=== PATIENT | male | born 1960 | race Caucasian/White ===

== ENCOUNTER 2019-09-24 13:14 | Emergency (ER) | payer OTHER, SELFPAY ==
--- NOTE | ~2019-09-24 | XR_ITS ---
EXAMINATION: XR foot LT min 3V EXAM DATE: 09/24/2019 16:08 INDICATION: Diabetic ulcer plantar surface left 5th metatarsal region. TECHNIQUE: Left foot dorsoplantar, lateral and oblique projections obtained and reviewed. There is n o prior study for comparison. FINDINGS: There is old healed left 5th metatarsal shaft fracture. Soft tissue swelling overlying thi s which could be edema at the ulceration site. Some small foci of gas at this location. There are no bony erosions identified. There are no acute fractures or dislocations identified. There are no radi opaque foreign bodies. IMPRESSION: 1. XR foot LT min 3V exam without acute osseous findings. 2. Soft tissue swelling, small foci of gas at ulceration or within subcutaneous tissues. Reviewed, dictated and finalized at location A. IMPRESSION: 1. XR foot LT min 3V exam without acute osseous findings. 2. Soft tissue swelling, small foci of gas at ulceration or within subcutaneou s tissues.
[2019-09-24 13:34] VITALS: BP 151/89; PULSE 84; RESP 18; TEMP 36.5; O2SAT 100
--- NOTE | 2019-09-24 15:48 | ECG_ITS ---
Measurements Intervals [place] Rate: 58 P: 47 [place]: 189 QRS: -52 QRSD: 136 T: -3 QT: 416 QTc: 412 Interpretive Statements SINUS BRADYCARDIA INTRAVENTRICULAR CONDUCTION DELAY DELAYED PRECORDIAL R/S TRANSITION VOLTAGE CRITERIA FOR LVH BORDERLINE T WAVE ABNORMALITY- INFERIOR LEADS BASELINE ARTIFACT- V1 BORDERLINE ECG Electronically Signed On 09-25-2019 9:49:36 CDT by Pernell Adams D.O.
--- NOTE | 2019-09-24 16:04 | ED.WOUNDLAC ---
HPI - Wound/Laceration General Chief Complaint: Wound/Laceration Stated Complaint: left foot wound Time Seen by Provider: 09/24/19 15:09 Source: patient Mode of arrival: ambulatory Limitations: no limitations History of Present Illness HPI narrative: This patient is a 59 year old male with history of insulin dependent diabetic who presents for evaluation of a left foot wound. Patient developed a blister on the outside of his left foot 2 weeks ago. Over the past week, he noticed swelling and worsening of the wound. He also has left foot redness and his wound has developed an odor. He has been attempting to treat with antibiotics ointment and epsom salt. He denies nausea, vomiting but reports low grade fever yesterday. He has also noticed that his blood sugar is running higher than normal. Related Data Home Medications Medication Instructions Recorded Confirmed cetirizine [Zyrtec] 10 mg PO DAILY 09/24/19 gabapentin 300 mg PO DAILY 09/24/19 insulin glargine [Lantus U-100 50 unit SUBCUT QPM 09/24/19 Insulin] lisinopril 10 mg PO DAILY 09/24/19 naproxen 250 mg PO BID PRN 09/24/19 Allergies Allergy/AdvReac Type Severity Reaction Status Date / Time No Known Allergies Allergy Unverified 09/24/19 13:33 Review of Systems Review of Systems: All systems reviewed & are unremarkable except as noted in HPI and below Constitutional: Constitutional: Denies chills and Reports fever(s) Cardiovascular: Cardiovascular: Denies chest pain Respiratory: Respiratory: Denies cough, Denies dyspnea and Denies wheezing Gastrointestinal: Gastrointestinal: Denies abdominal pain, Denies nausea and Denies vomiting Integumentary/Breasts: Skin/Breast: Reports erythema and Reports skin ulcer PMFSH Past Medical History Medical History (Updated 09/24/19 @ 19:27 by May Robledo MD) Diabetes mellitus Hypertension Surgical History Surgical History (Updated 09/24/19 @ 16:16 by May Robledo MD) History of cholecystectomy Family History Family History (Updated 01/18/17 @ 11:59 by DOCTOR UNKNOWN) Other Cerebrovascular accident Diabetes mellitus Family history of alcoholism Family history of arthritis Family history of malignant neoplasm Social History Social History Smoking status: Smoker, status unknown Gender identity (if verbalized by the patient): Male Exam Const: General: no acute distress and alert Orientation/consciousness: patient oriented x3 HENMT: Head: normocephalic and atraumatic Ears: TM's normal bilaterally General nose exam: No nasal polyps present Eyes: EOM: EOMs intact bilaterally Chest: Chest palpation & inspection: normal inspection of the chest Resp: Effort & Inspection: normal respiratory effort and no retractions Auscultation: clear to auscultation bilaterally Cardio: Rate: regular rate Rhythm: regular rhythm Heart sounds: no murmurs Other: palpable bilateral DP pulses GI: GI Palp: Yes Soft to palpation, No Tenderness to palpation present (GI) and No Guarding due to palpation present (GI) Skin: Other: left foot with swelling and redness; on lateral foot there is 4 cm blister with dark tissue under and 2 cm ulcer on plantar surface Neuro: General: patient oriented x3 and moves all extremities Course Reevaluation(s) Reevaluation #1: I Discussed with patient that I recommend he be admitted for treatment and debridement of left foot wound. He understands that this can lead to worsening infection and surgery. He states he does not want to be admitted. 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 Date: 09/24/19 Time: 18:00 Consultations Consultation #1: I discussed case with Dr. Guerrero about patient's foot ulcer. I discussed that I wanted to admit patient but he does not want to stay. He is okay with follow up with patient in wound center this week. REcommends taking culture and dressing with silver gel. Date: 09/24/19 Time: 18:51 Vital Signs Vital
[2019-09-24 16:29] LABS: Basophils Absolute Auto 0.1 K/mm3 (0.0-0.1); Basophils Percent Auto 0.8 % (0.2-1.2); Eosinophils Absolute Auto 0.3 K/mm3 (0-0.3); Eosinophils Percent Auto 2.6 % (0-4.4); Hematocrit 40.2 % (42.0-52.0); Hemoglobin 13.6 g/dL (14.0-18.0); Immature Granulocyte Absolute 0.02 K/mm3 (0.00-0.031); Immature Granulocyte Percent A 0.2 % (0-0.5); Lymphocytes Absolute Auto 1.58 K/mm3 (0.9-3.2); Lymphocytes Percent Auto 16.3 % (18.3-44.2); Mean Corpuscular HGB Conc 33.8 g/dl (32-36); Mean Corpuscular Hemoglobin 28.9 pg (26-34); Mean Corpuscular Volume 85.4 fl (80-100); Mean Platelet Volume 9.4 fl (7.4-10.4); Monocytes Absolute Auto 1.1 K/mm3 (0.1-0.6); Neutrophils Absolute Auto 6.7 K/mm3 (1.3-6.7); Neutrophils Percent Auto 69.1 % (45.5-73.1); Platelet Count Result 156 k/mm3 (150-375); Red Blood Count 4.71 M/mm3 (4.6-6.20); Red Cell Distribution Width 13.1 % (11.5-14.5); White Blood Count 9.7 K/mm3 (4.5-10.0)
[2019-09-24 16:39] LABS: INR 1.2; Prothrombin Time 14.7 Seconds (11.1-14.7)
[2019-09-24 16:40] LABS: Partial Thromboplastin Time 32.8 SECONDS (22.3-36.8)
[2019-09-24 16:43] LABS: Alanine Aminotransferase 15 U/L (4-50); Alkaline Phosphatase 116 U/L (38-126); Anion Gap 12.1 mmol/L (7-16); Aspartate Amino Transferase 26 U/L (17-59); Bilirubin,Total 0.8 mg/dL (0.2-1.3); Blood Urea Nitrogen 13 mg/dL (9-20); CRP 5.8 mg/dL (<1.0); Calcium 8.4 mg/dL (8.4-10.2); Carbon Dioxide 26 mmol/L (22-30); Chloride 97 mmol/L (98-107); Estimated CRCL calculation 112 ml/min; Estimated Glomerular Filt Rate > 60; Glucose 95 mg/dL (75-110); Potassium 4.1 mmol/L (3.4-5.0); Sodium 131 mmol/L (137-145)
[2019-09-24 16:57] LABS: Erythrocyte Sedimentation Rate 23 mm/hr (0-20)
[2019-09-24] MEDS: SILVERGEL (ELTA) 45 ML 1 APPLIC TOPICAL (19:26)
== END 2019-09-24 20:53 | disposition home or self-care (01) ==
PROVIDERS: Emergency Provider General Practice
DX: E11.621 Type 2 diabetes mellitus with foot ulcer (principal); L97.429 Non-pressure chronic ulcer of left heel and midfoot with unspecified severity; R00.1 Bradycardia, unspecified; I10 Essential (primary) hypertension; E11.21 Type 2 diabetes mellitus with diabetic nephropathy; Z79.4 Long term (current) use of insulin
CPT/HCPCS: 36415; 73630; 80053; 85025; 85610; 85652; 85730; 86140; 87040; 87070; 87186; 87205; 93005; 96365; 96367; 99284; J0743; J3370

== ENCOUNTER 2019-10-30 11:59 | Outpatient (CLI) | payer OTHER, SELFPAY ==
--- NOTE | ~2019-10-30 | XR_ITS ---
XR foot LT 2V DATE: 10/30/2019 12:17 INDICATION: Wound at lateral fifth metatarsal head TECHNIQUE: AP and lateral views COMPARISON: 09/24/2019 left foot FINDINGS: There is soft tissue swelling of the forefoot. There is soft tissue irregularity and depres danny at the lateral aspect of the fifth metatarsal head. The appearance is that of a soft tissue ulce r. There is erosion of the fifth metatarsal head, best demonstrated laterally, as well as some cortical erosion of the lateral base of the proximal phalanx of the fifth metatarsal bone. There is medial sub luxation and widening of the fifth metatarsophalangeal joint. The findings suggest osteomyelitis of t he distal fifth metatarsal bone and the base of the proximal phalanx of the fifth toe. There are some apparent bone fragments or soft tissue calcifications in the lateral right foot in the region of the distal fifth metatarsal bone. There is suggestion of a wound along the heel of the foot with some soft tissue calcification. Recomm end clinical correlation for soft tissue ulcer at this site. IMPRESSION: Suspected osteomyelitis at the distal fifth metatarsal and base of the proximal phalanx o f the fifth toe Possible soft tissue ulcer at the heel Reviewed, dictated and finalized at location A. IMPRESSION: Suspected osteomyelitis at the distal fifth metatarsal and base of the proximal phalanx of the fifth toe Possible soft tissue ulcer at the heel
== END 2019-10-30 12:00 | disposition home or self-care (01) ==
LOC: ANHIMG 12:05
PROVIDERS: Visit Provider Surgery
DX: E11.628 Type 2 diabetes mellitus with other skin complications (principal); L08.9 Local infection of the skin and subcutaneous tissue, unspecified
CPT/HCPCS: 73620

== ENCOUNTER 2019-12-01 10:08 | Inpatient (IN) | payer OTHER, SELFPAY ==
[2019-12-01] VITALS (23 sets, daily range): BP systolic 90–142; BP diastolic 65–80; PULSE 85–104; RESP 16–23; TEMP 36.3–36.6; O2SAT 95–100
--- NOTE | ~2019-12-01 | XR_ITS ---
XR foot LT 2V DATE: 12/01/2019 14:58 INDICATION: Left foot wound, diabetic ulcer TECHNIQUE: 2 views COMPARISON: 11/09/2019 left foot FINDINGS: There is interval amputation of the fifth ray (including all fifth phalanges) at the proxim al shaft of the fifth metatarsal bone. There is soft tissue bandage along the soft tissues of the lateral distal foot. Slight plantar calcaneal enthesopathy. No fracture, dislocation, bone destruction is noted otherwise. IMPRESSION: Amputation of the fifth metatarsal bone at the proximal shaft Reviewed, dictated and finalized at location A.
--- NOTE | ~2019-12-01 | XR_ITS ---
XR chest 2V 12/01/2019 12:03 Indication: Weakness Procedure: 2 view chest Comparison: No prior studies for comparison. Findings: Elevation of the right diaphragm. Heart size normal. No focal air space disease, pulmonary edema, pleural effusion or suspected pneumothorax. Impression: 1: No acute cardiopulmonary disease. Reviewed, dictated and finalized at location A. Impression: 1: No acute cardiopulmonary disease.
--- NOTE | 2019-12-01 10:11 | ECG_ITS ---
Measurements Intervals [place] Rate: 97 P: 56 VT: 135 QRS: -57 QRSD: 121 T: 74 QT: 361 QTc: 459 Interpretive Statements SINUS RHYTHM LEFT ANTERIOR FASCICULAR BLOCK BASELINE ARTIFACT- I, III, AVR, AVL ABNORMAL ECG Electronically Signed On 12-02-2019 9:04:33 CDT by Pernell Adams D.O.
[2019-12-01] MEDS: SODIUM CHLORIDE 0.9% IV 1,000 ML 999 ML (10:31)
[2019-12-01 10:50] LABS: Basophils Absolute Auto 0.1 K/mm3 (0.0-0.1); Basophils Percent Auto 0.7 % (0.2-1.2); Eosinophils Absolute Auto 0.1 K/mm3 (0-0.3); Eosinophils Percent Auto 0.8 % (0-4.4); Hematocrit 28.9 % (42.0-52.0); Hemoglobin 9.8 g/dL (14.0-18.0); Immature Granulocyte Absolute 0.14 K/mm3 (0.00-0.031); Lymphocytes Absolute Auto 2.62 K/mm3 (0.9-3.2); Lymphocytes Percent Auto 19.3 % (18.3-44.2); Mean Corpuscular HGB Conc 33.9 g/dl (32-36); Mean Corpuscular Hemoglobin 28.5 pg (26-34); Mean Platelet Volume 9.7 fl (7.4-10.4); Monocytes Absolute Auto 1.1 K/mm3 (0.1-0.6); Monocytes Percent Auto 8.2 % (2.6-8.5); Neutrophils Absolute Auto 9.5 K/mm3 (1.3-6.7); Platelet Count Result 297 k/mm3 (150-375); Red Blood Count 3.44 M/mm3 (4.6-6.20); Red Cell Distribution Width 12.7 % (11.5-14.5); White Blood Count 13.6 K/mm3 (4.5-10.0)
[2019-12-01 10:58] LABS: INR 1.3; Prothrombin Time 15.8 Seconds (11.1-14.7)
[2019-12-01 10:59] LABS: Partial Thromboplastin Time 33.1 SECONDS (22.3-36.8)
[2019-12-01 11:02] LABS: Lactic Acid Reflex 2.4 mmol/L (0.7-2.1)
[2019-12-01 11:03] LABS: Add Urine Microscopic? YES; Appearance Urine Clear (Clear); Bilirubin Urine Negative (Negative); Blood Urine Negative (Negative); Color Urine Yellow (Yellow); Glucose Urine UA Negative (Negative); Ketones Urine Trace mg/dL (Negative); Leukocyte Esterase Ur Negative LEU/UL (Negative); Mucus Urine Rare /lpf; Nitrate Urine Negative (Negative); Protein Urine Negative (Negative); RBC Urine 0-2 /hpf (0-2); Specific Grav Ur 1.017 (1.001-1.035); Squamous Epithelial Cell Urine Rare /hpf (Few); Urobilinogen Urine Negative mg/dL (<2.0); WBC Urine 0-3 /hpf
[2019-12-01 11:06] LABS: Alanine Aminotransferase 14 U/L (4-50); Albumin Level 3.1 g/dL (3.5-5.1); Alkaline Phosphatase 97 U/L (38-126); Anion Gap 10 mmol/L (8-16); Aspartate Amino Transferase 18 U/L (17-59); Bilirubin,Total 0.6 mg/dL (0.2-1.3); Blood Urea Nitrogen 49 mg/dL (9-20); CRP 5.1 mg/dL (<1.0); Calcium 8.6 mg/dL (8.4-10.2); Carbon Dioxide 25 mmol/L (22-30); Chloride 98 mmol/L (98-107); Estimated CRCL calculation 101 ml/min; Estimated Glomerular Filt Rate > 60; Glucose 180 mg/dL (75-110); Potassium 3.9 mmol/L (3.4-5.0); Sodium 133 mmol/L (137-145)
[2019-12-01 11:15] LABS: Troponin I < 0.012 ng/mL (0.000-0.034)
--- NOTE | 2019-12-01 12:04 | ED.WEAKNESS ---
HPI - Weakness General Chief complaint: Weakness Stated complaint: weakness Time Seen by Provider: 12/01/19 10:16 Source: patient Mode of arrival: EMS Limitations: no limitations History of Present Illness HPI Narrative: 59-year-old with a history of diabetes s/p amputation of the left fifth toe secondary to osteomyelitis was brought in from home with complaints of near syncopal episode. Patient states that he was feeling extremely weak could not get out of the toilet fell backwards but did not hit her head no loss of consciousness. Upon EMS arrival patient was hypertensive. Patient denies any chest pain, fever or chills. No history of nausea or vomiting or diarrhea. MD Complaint: generalized weakness Duration: constant Location: generalized Migration: none Context: recent surgery Related Data Home Medications Medication Instructions Recorded Confirmed gabapentin 300 mg PO DAILY 09/24/19 11/13/19 insulin glargine [Lantus U-100 50 unit SUBCUT QPM 09/24/19 11/13/19 Insulin] lisinopril 10 mg PO DAILY 09/24/19 11/13/19 Allergies Allergy/AdvReac Type Severity Reaction Status Date / Time No Known Allergies Allergy Verified 11/13/19 10:34 Review of Systems Review of Systems: All systems reviewed & are unremarkable except as noted in HPI and below Constitutional: Constitutional: Reports no additional constitutional complaints Eyes: Eyes: Reports as per HPI ENT: Reports system reviewed and no additional complaints, except as documented Cardiovascular: Cardiovascular: Reports no additional cardiovascular complaints Gastrointestinal: Gastrointestinal: Reports no additional gastrointestinal complaints Musculoskeletal: Musculoskeletal: Reports as per HPI Neurologic: Reports system reviewed and no additional complaints, except as documented Endocrine: Endocrine: Reports no additional endocrine complaints [facility] Past Medical History Medical History Depression Diabetes mellitus Hypertension Surgical History Surgical History H/O elbow surgery H/O knee surgery H/O rotator cuff surgery H/O umbilical hernia repair History of cholecystectomy S/P foot surgery, right Family History Family History Father Heart disease Mother Heart disease Sibling Lung cancer Grandparent Diabetes mellitus Other Cerebrovascular accident Family history of alcoholism Family history of arthritis Family history of malignant neoplasm Social History Social History Smoking status: Heavy tobacco smoker Tobacco type: cigarettes Alcohol intake: current Substance use: unknown Additional occupation/education comments: works at [employer] Gender identity (if verbalized by the patient): Male Exam Narrative: Exam Narrative: GENERAL: Well-appearing, well-nourished, and in no acute distress. HEAD: Normocephalic, atraumatic. EYES: PERRLA and EOMI. ENT: Nares clear, no rhinorrhea or epistaxis. Mucous membranes moist. NECK: Supple. CHEST: Clear to auscultation. No respiratory distress. HEART: Regular rate and rhythm. No murmur heard. Normal peripheral pulses. ABDOMEN: Soft, nontender, nondistended, normal active bowel sounds. EXTREMITIES: Normal range of motion. No edema. Left foot in splint SKIN: Warm, dry, no rash. NEURO: No focal deficits. Alert and oriented x3. PSYCH: Normal mood and affect. Course Course Emergency Course: Patient blood pressure improved after 2 L of IV fluids his pressure after infusion is 116/71, I discussed labs, chest x-ray findings with the patient. We will admit him to the hospital for IV fluids and antibiotics. I discussed with Dr. Paz accepted the patient Vital Signs Vital signs: Vital Signs Temperature 36.6 C 12/01/19 10:10 Pulse Rate 10
--- NOTE | 2019-12-01 13:30 | PC.NURSE ---
Pt. has positive blood in stool. EDP aware and will continue to monitor.
[2019-12-01 13:47] LABS: Reflex Lactic Acid Yes or No Add Lactic
--- NOTE | 2019-12-01 14:27 | PM.IMHP ---
H&P: HPI History of Present Illness Date/Time: 12/01/19 14:27 Chief complaint: Hypotension, SIRS Narrative: Teodoro Shelton is a 59 year old male who has a history of diabetic neuropathy to his lower extremities. The patient has seen Dr. Dixon as well as Dr. Guerrero the past for these issues. Patient had debridement of the right 5th metatarsal in the past after a corn Was removed from his right toe and that healed well. The patient developed a blister on his left foot because he was wearing a boot and it became infected. The patient had seen Dr. dixon and Dr. Guerrero. I believe the patient was not able to follow through due to some insurance issues. 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 The patient did have osteomyelitis and was on antibiotics prior to the amputation of that left 5th toe. The patient had that toe removed by his by his blanchard grinder operator Dr. Sousa and the patient was placed on doxycycline postoperatively. The patient stated that he has not mass with a dressing and he was told that he should not remove that dressing until this next Monday when he has a follow-up appointment with his blanchard grinder operator. The patient stated that he has been having a poor appetite has not been able to eat or drink very much as he has a bad taste in his mouth. The antibiotic has been irritating his stomach as well. He has not had any nausea vomiting or fever chills. He just had loss of appetite and he feels like he has a lot of acid reflux. The patient has become very weak and he was brought in from home today for complaints of a near syncopal episode. He was so weak that he could not get off of the toilet any fell backwards but did not hit his head or lose consciousness. The patient has not been taking his insulin or his medications as prescribed because he had an upset stomach. Chest x-ray today was read as no acute cardiopulmonary disease. white count was noted to be 13.6 but this could just be from his recent surgery. However they left foot still continues to have a foul smell and some drainage. He was empirically started on vancomycin and Primaxin. I have talked to the admitting hospitalist about the case and he suggested that we continue with the antibiotics for now and have wound care look at the patient. I explained to the patient that he would need to return to his blanchard grinder operator for any postop care as he has an appointment this next Monday. I explained that we would not be able to consult surgery or blanchard grinder operator here as his care was initiated by blanchard grinder operator elsewhere And that he would need to return to that blanchard grinder operator for further care. Patient is being admitted inpatient to medical floor for dehydration due to loss of appetite and near syncopal episode. Patient's BUN was elevated to 49 but creatinine was normal. Glucose is 180. His lactic acid was 2.4. Reflux is pending. Sodium is low at 133 however his previous sodium was only 131. His heart rate was 1 041.. Blood pressure was found to be low today. Patient reports the criteria for sepsis with leukocytosis elevated heart rate and low blood pressure. Date of service 12/01/2019 Review of Systems Review of Systems: All systems reviewed & are unremarkable except as noted in HPI and below Constitutional: Constitutional: Reports as per HPI and Reports no additional constitutional complaints Eyes: Eyes: Reports as per HPI and Reports no additional eye complaints ENT: Reports system reviewed and no additional complaints, except as documented and Reports Normal hearing present Cardiovascular: Cardiovascular: Reports no additional cardiovascular complaints Respiratory: Respiratory: Reports no additional respiratory complaints and Reports no additional respiratory complaints Gastrointestinal: Gastrointestinal: Reports as per HPI and Reports no additional gastrointestinal complaints Musculoskeletal:
--- NOTE | 2019-12-01 14:48 | ADMGEN ---
This patient, Teodoro Shelton, was admitted to 3 [facility] Surg Room 302-01. Patient/family oriented to hospital policies and general routines including ID bracelet, bed and alarms, visiting hours, pain management, procedures, bathroom and other care routines, personal items, smoking policy, room service/diet, and visiting hours. Valuables list has been completed. Information on how to activate the Rapid Response Team has been discussed. Patient/Family are encouraged to report perceived risks to care and to ask questions if they do not understand what they are told or what they should do.
[2019-12-01 14:49] LABS: Lactic Acid 1.4 mmol/L (0.7-2.1)
[2019-12-01] MEDS: SODIUM CHLORIDE 0.9% IV 1,000 ML 125 ML IV CONT (15:29)
--- NOTE | 2019-12-01 16:10 | PCRCNOTE ---
Patient states that he does not wear a CPAP anymore. He said he lost a lot of weight and no longer wears or needs one.
[2019-12-01 16:11] LABS: Hematocrit 27.3 % (42.0-52.0); Hemoglobin 9.2 g/dL (14.0-18.0)
[2019-12-01 16:59] LABS: Glucose Point of Care 145 (65-105)
[2019-12-01] MEDS: NICOTINE (*PBKC) 21 MG PATCH 1 PATCH TRANSDERM (17:40)
[2019-12-01] MEDS: GABAPENTIN 300 MG CAPSULE PO (17:40)
[2019-12-01] MEDS: FAMOTIDINE 20 MG/2 ML VIAL IV PUSH (21:09)
[2019-12-01 21:15] LABS: Glucose Point of Care 182 (65-105)
[2019-12-01 22:20] LABS: Hematocrit 24.4 % (42.0-52.0); Hemoglobin 8.3 g/dL (14.0-18.0)
[2019-12-02] VITALS (18 sets, daily range): BP systolic 101–159; BP diastolic 57–91; PULSE 64–93; RESP 15–34; TEMP 36.2–36.9; O2SAT 94–100
[2019-12-02] MEDS: SODIUM CHLORIDE 0.9% IV 1,000 ML 125 ML IV CONT ×2 (00:09→10:31)
[2019-12-02] MEDS: SODIUM CHLORIDE 0.9% IV 250 ML 30 ML IV CONT (02:36)
[2019-12-02] MEDS: ACETAMINOPHEN 325 MG TABLET 650 MG PO (05:58)
[2019-12-02 07:35] LABS: Basophils Absolute Auto 0.1 K/mm3 (0.0-0.1); Basophils Percent Auto 0.9 % (0.2-1.2); Eosinophils Absolute Auto 0.2 K/mm3 (0-0.3); Eosinophils Percent Auto 2.6 % (0-4.4); Hematocrit 25.4 % (42.0-52.0); Hemoglobin 8.7 g/dL (14.0-18.0); Immature Granulocyte Absolute 0.08 K/mm3 (0.00-0.031); Immature Granulocyte Percent A 0.9 % (0-0.5); Lymphocytes Absolute Auto 2.12 K/mm3 (0.9-3.2); Mean Corpuscular HGB Conc 34.3 g/dl (32-36); Mean Corpuscular Hemoglobin 28.2 pg (26-34); Mean Corpuscular Volume 82.2 fl (80-100); Mean Platelet Volume 8.5 fl (7.4-10.4); Monocytes Absolute Auto 0.6 K/mm3 (0.1-0.6); Monocytes Percent Auto 6.8 % (2.6-8.5); Neutrophils Absolute Auto 6.1 K/mm3 (1.3-6.7); Neutrophils Percent Auto 65.8 % (45.5-73.1); Platelet Count Result 166 k/mm3 (150-375); Red Blood Count 3.09 M/mm3 (4.6-6.20); White Blood Count 9.2 K/mm3 (4.5-10.0)
[2019-12-02 07:43] LABS: Hemoglobin A1C 6.4 % (<5.7)
[2019-12-02 07:48] LABS: Anion Gap 4 mmol/L (8-16); Blood Urea Nitrogen 26 mg/dL (9-20); Calcium 7.9 mg/dL (8.4-10.2); Carbon Dioxide 26 mmol/L (22-30); Chloride 100 mmol/L (98-107); Estimated CRCL calculation 128 ml/min; Estimated Glomerular Filt Rate > 60; Glucose 101 mg/dL (75-110); Lactate Dehydrogenase 305 U/L (313-618); Potassium 3.8 mmol/L (3.4-5.0); Sodium 130 mmol/L (137-145)
[2019-12-02] MEDS: FAMOTIDINE 20 MG/2 ML VIAL IV PUSH (08:49)
[2019-12-02] MEDS: NICOTINE (*PBKC) 21 MG PATCH 1 PATCH TRANSDERM (08:49)
--- NOTE | 2019-12-02 09:37 | WPDGICN ---
Assessment and Plan Assessment and plan (1) Melena: Code(s): K92.1 - Melena Status: Acute Assessment and Plan: Patient has dark melenic stools along with decline in hemoglobin suggesting upper GI bleeding. Plan is for IV proton pump inhibitor. An EGD will be performed today. Patient be treated should be transfused to a stable hemoglobin. (2) Anemia due to blood loss: Code(s): D50.0 - Iron deficiency anemia secondary to blood loss (chronic) Status: Acute (3) Diabetes mellitus: Qualifiers: Diabetes mellitus type: type 2 Diabetes mellitus news clerk insulin use: with halfway use Diabetes mellitus complication status: with neurologic complications Diabetes mellitus complication detail: with unspecified neuropathy Qualified Code(s): E11.40 - Type 2 diabetes mellitus with diabetic neuropathy, unspecified; Z79.4 - principal investigator (current) use of insulin Code(s): E11.9 - Type 2 diabetes mellitus without complications Status: Chronic (4) Osteomyelitis of fifth toe of left foot: Code(s): M86.9 - Osteomyelitis, unspecified Status: Acute GI Consult Note Consult date/time: 12/02/19 09:37 HPI: Teodoro Shelton is a 59 year old male Seen in evaluation at the request of the hospitalist service. Patient has a history of diabetes. He recently had osteomyelitis in amputation of 1 of his toes. He has been followed by Ortho and surgery for poor healing of this wound. He was admitted the hospital with hypotension. Patient gives a history of black dark melenic stools. These were found to be Hemoccult-positive. During the evening his hemoglobin has declined any required transfusion of at least 2units of packed red blood cells. Patient denies any significant abdominal pain. He is not known to have ulcer disease. Review of Systems Review of Systems: All systems reviewed & are unremarkable except as noted in HPI and below PMFSH Past Medical History Medical History (Updated 12/02/19 @ 09:39 by Barber Epperson MD) Chronic GERD Depression Diabetes mellitus type 2 Diabetic neuropathy Hyperlipidemia Hypertension Obstructive sleep apnea the patient has lost some weight no longer uses a CPAP machine. S/P ORIF (open reduction internal fixation) fracture right elbow Surgical History Surgical History (Updated 12/01/19 @ 14:46 by Niesha Musa NP) H/O elbow surgery H/O foot surgery bilateral feet for possible hammertoe. He had to be admitted to his right 5th toe x2. He had the left 5th toe amputated November of 2019 H/O knee surgery H/O rotator cuff surgery bilaterally H/O umbilical hernia repair History of arthroplasty of right knee History of cholecystectomy S/P foot surgery, right Family History Family History (Updated 12/01/19 @ 14:47 by Niesha Msua NP) Father Heart disease Hypertension Mother Heart disease Hypertension Sibling Lung cancer Cerebrovascular accident Hypertension Grandparent Diabetes mellitus Other Family history of alcoholism Family history of arthritis Family history of malignant neoplasm Social History Social History (Updated 12/01/19 @ 14:58 by Niesha Musa NP) Social History: the patient is to [place] who is his durable power securities attorney for healthcare. The patient is a full code. Patient has 1 biological son and 3 step children. The patient has a job at [employer] but has not worked there 2 months due to his foot. The patient continues to smoke a half a pack to a pack a cigarettes a day. Patient uses alcohol socially Na monitor balderas. Smoking packs per day: 1 Smoking cigarettes per day: 20.0 Smoking status: Heavy tobacco smoker Tobacco type: cigarettes Alcohol intake: current Substance use: unknown Living arrangements: with family Occupation/Education: occupation Additional occupation/education comments: works at [employer] Gender identity (if verbalized b
[2019-12-02 10:48] LABS: Hematocrit 27.3 % (42.0-52.0); Hemoglobin 9.3 g/dL (14.0-18.0)
--- NOTE | 2019-12-02 10:48 | PM.IMPN ---
Progress Note: A&P Assessment and Plan (1) Anemia due to blood loss: Code(s): D50.0 - Iron deficiency anemia secondary to blood loss (chronic) Status: Acute Assessment and Plan: Likely due to Upper GI bleed given reports of melena and associated hypotension. Dr. Epperson consulted and will be going for EGD today. Patient recieved 2 u pRBC, finishing this morning. H&H improved to 9.3/27.3 this morning. Clinically has improved. Has chronic Nsaid use; we discussed refraining from NSAID use after discharge. Denies excessive alcohol use. Await further rec from GI Continue with PPI therapy Monitor H&H Refrain from NSAID use (2) Melena: Code(s): K92.1 - Melena Status: Acute Assessment and Plan: Reports of melena yesterday. No BMs today. GI following. Likely due to upper GI blood. See above a/p (3) Acute hypotension: Code(s): I95.9 - Hypotension, unspecified Status: Acute Assessment and Plan: Likely related to poor PO intake, as well as, likely acute GI blood loss, likely upper GI given reports of melena. Patient received 2 u pRBCs overnight and finished this morning. BP has improved today. Acute infection appears to be less likely. Continue with IVF at 100 mL/hr; consider d/c if tolerating PO and BP allows Monitor closely Resume home antihypertensive if BP improves (4) Diabetic neuropathy: Code(s): E11.40 - Type 2 diabetes mellitus with diabetic neuropathy, unspecified Status: Chronic Assessment and Plan: Continue with gabapentin. (5) Osteomyelitis of fifth toe of left foot: Code(s): M86.9 - Osteomyelitis, unspecified Status: Acute Assessment and Plan: The patient recently had surgery at [facility] per Dr. Sousa. WC consulted; discussed with WC nurse and there are no signs of acute infection on exam. Patient has follow up with Dr. Sousa tomorrow in the afternoon, but we discussed possibly rescheduling at later date Will stop IV vanc and imipenem and resume his home doxycycline (6) SIRS (systemic inflammatory response syndrome): Code(s): R65.10 - Systemic inflammatory response syndrome (SIRS) of non-infectious origin without acute organ dysfunction Status: Acute Assessment and Plan: Patient hypotensive with leukocytosis, although this appears to be more related to acute blood loss anemia and associated hypotension. Acute infection felt to be less likely at this time. Lactic acid has normalized. Leukocytosis could possibly be from his recent surgery. Will continue with IV fluids at this time Will place patient back on his home doxycycline and stop IV antibiotics (7) Acute dehydration: Code(s): E86.0 - Dehydration Status: Acute Assessment and Plan: From poor PO intake prior to arrival Continue with IV fluids. Monitor labs (8) Hyperlipidemia: Code(s): E78.5 - Hyperlipidemia, unspecified Status: Chronic Assessment and Plan: Patient is not on any medication. (9) Chronic GERD: Code(s): K21.9 - Gastro-esophageal reflux disease without esophagitis Status: Chronic Assessment and Plan: Will switch to IV pantoprazole for now given evidence of acute upper GI bleed (10) Hypertension: Qualifiers: Hypertension type: essential hypertension Qualified Code(s): I10 - Essential (primary) hypertension Code(s): I10 - Essential (primary) hypertension Status: Chronic Assessment and Plan: BP soft on arrival and normal today. Lisinopril held Contiunue to hold antihypertensives and
--- NOTE | 2019-12-02 11:57 | WPDANESEPPF ---
Anes - Initial Pre Proc Eval Procedure: Operation Date: 12/02/19 12:30 Proposed Procedures p Esophagogastroduodenoscopy - Barber Epperson MD Date/Time: 12/02/19 11:57 Surgeon: Vadim Christian PA-C Pre Op Diagnosis: Hypotension, SIRS Patient Data Age: 59 Gender: M Height: 6 ft 1 in Weight: 116.7 kg Last Vital Signs Temp 36.3 C L 12/02/19 06:00 Pulse 84 12/02/19 06:00 Resp 18 12/02/19 06:00 BP 118/64 12/02/19 06:00 Pulse Ox 96 12/02/19 06:00 Allergies Allergy/AdvReac Type Severity Reaction Status Date / Time No Known Allergies Allergy Verified 12/02/19 11:55 Home Medications Medication Instructions Recorded Confirmed Type gabapentin 300 mg PO TID 09/24/19 12/01/19 History insulin glargine [Lantus U-100 50 unit SUBCUT QPM 09/24/19 12/01/19 History Insulin] lisinopril 10 mg PO DAILY 09/24/19 12/01/19 History doxycycline monohydrate 100 mg PO BID 12/01/19 12/01/19 History Laboratory Tests 12/01/19 12/01/19 12/01/19 14:20 16:07 16:56 WBC RBC Hgb 9.2 g/dL L g/dL (14.0-18.0) Hct 27.3 % L % (42.0-52.0) MCV MCH MCHC RDW Plt Count MPV Immature Gran % (Auto) Neut % (Auto) Lymph % (Auto) Deuel % (Auto) Eos % (Auto) Baso % (Auto) Lymph # (Auto) Deuel # (Auto) Eos # (Auto) Baso # (Auto) Abs Immat Gran (auto) Absolute Neuts (auto) Absolute Nucleated RBC Nucleated RBC % Sodium Potassium Chloride Carbon Dioxide Anion Gap BUN Creatinine Estim Creat Clear Calc Estimated GFR Glucose POC Capillary Glucose 145 mg/dl H mg/dl (65-105) Hemoglobin A1c Lactic Acid 1.4 mmol/L mmol/L (0.7-2.1) Calcium Magnesium Ferritin Lactate Dehydrogenase TSH (Reflex) Blood Type Antibody Screen Crossmatch 12/01/19 12/01/19 12/01/19 21:09 22:13 22:58 WBC RBC Hgb 8.3 g/dL L g/dL (14.0-18.0) Hct 24.4 % L % (42.0-52.0) MCV MCH MCHC RDW Plt Count MPV Immature Gran % (Auto) Neut % (Auto) Lymph % (Auto) Deuel % (Auto) Eos % (Auto) Baso % (Auto) Lymph # (Auto) Deuel # (Auto) Eos # (Auto) Baso # (Auto) Abs Immat Gran (auto) Absolute Neuts (auto) Absolute Nucleated RBC Nucleated RBC % Sodium Potassium Chloride Carbon Dioxide Anion Gap BUN Creatinine Estim Creat Clear Calc Estimated GFR Glucose POC Capillary Glucose 182 mg/dl H mg/dl (65-105) Hemoglobin A1c Lactic Acid Calcium Magnesium Ferritin Lactate Dehydrogenase TSH (Reflex) Blood Type A Positive Antibody Screen Negative Crossmatch See Detail 12/02/19 12/02/19 12/02/19 07:26 07:26 07:26 WBC 9.2 K/mm3 K/mm3 (4.5-10.0) RBC 3.09 M/mm3 L M/mm3 (4.6-6.20) Hgb 8.7 g/dL L g/dL (14.0-18.0) Hct 25.4 % L % (42.0-52.0) MCV 82.2 fl fl (80-100) MCH 28.2 pg pg (26-34) MCHC 34.3 g/dl g/dl (32-36) RDW 13.0 % % (11.5-14.5) Plt Count 166 k/mm3 k/mm3 (150-375) MPV 8.5 fl fl
[2019-12-02] MEDS: LACTATED RINGERS 1,000 ML 150 ML IV CONT (12:03)
[2019-12-02 12:06] LABS: Glucose Point of Care 90 (65-105)
[2019-12-02 12:09] LABS: Glucose Point of Care 88 (65-105)
--- NOTE | 2019-12-02 12:16 | PC.NURSE ---
1100 gi lab here to get pt. for egd
[2019-12-02 13:04] LABS: Glucose Point of Care 88 (65-105)
[2019-12-02] MEDS: PANTOPRAZOLE SODIUM IV 40 MG VIAL IV PUSH ×2 (13:44→20:23)
[2019-12-02] MEDS: GABAPENTIN 300 MG CAPSULE PO ×2 (13:46→17:39)
[2019-12-02 17:41] LABS: Glucose Point of Care 98 (65-105)
[2019-12-02] MEDS: DOXYCYCLINE HYCLATE 100 MG TABLET PO (20:23)
[2019-12-02 22:53] LABS: Glucose Point of Care 150 (65-105)
[2019-12-03] VITALS: PULSE 76
[2019-12-03 04:00] VITALS: PULSE 76
[2019-12-03] MEDS: ACETAMINOPHEN 325 MG TABLET 650 MG PO (05:03)
[2019-12-03] MEDS: GABAPENTIN 300 MG CAPSULE PO (05:04)
[2019-12-03 05:45] VITALS: BP 135/75; PULSE 64; RESP 18; TEMP 36.3; O2SAT 98
[2019-12-03 06:37] LABS: Hemoglobin 8.7 g/dL (14.0-18.0); Mean Corpuscular HGB Conc 33.5 g/dl (32-36); Mean Corpuscular Hemoglobin 28.3 pg (26-34); Mean Corpuscular Volume 84.7 fl (80-100); Mean Platelet Volume 9.2 fl (7.4-10.4); Platelet Count Result 188 k/mm3 (150-375); Red Blood Count 3.07 M/mm3 (4.6-6.20); Red Cell Distribution Width 12.9 % (11.5-14.5); White Blood Count 8.4 K/mm3 (4.5-10.0)
[2019-12-03 07:07] LABS: Anion Gap 4 mmol/L (8-16); Blood Urea Nitrogen 13 mg/dL (9-20); Carbon Dioxide 29 mmol/L (22-30); Chloride 99 mmol/L (98-107); Estimated CRCL calculation 128 ml/min; Estimated Glomerular Filt Rate > 60; Glucose 93 mg/dL (75-110); Magnesium 2.1 mg/dL (1.6-2.3); Potassium 3.7 mmol/L (3.4-5.0); Sodium 132 mmol/L (137-145)
[2019-12-03 08:00] VITALS: PULSE 90
[2019-12-03] MEDS: NICOTINE (*PBKC) 21 MG PATCH 1 PATCH TRANSDERM (08:00)
[2019-12-03] MEDS: PANTOPRAZOLE SODIUM IV 40 MG VIAL IV PUSH (08:01)
--- NOTE | 2019-12-03 08:06 | WPDANESPN ---
Anes - Prog Note Post-Op Date/Time: 12/03/19 08:06 Cardiovascular status: normal Respiratory status: normal Airway patency: baseline Mental status: baseline Post-Op hydration status: normal Vital Signs: Last Vital Signs Temp 36.3 C L 12/03/19 05:45 Pulse 64 12/03/19 05:45 Resp 18 12/03/19 05:45 BP 135/75 12/03/19 05:45 Pulse Ox 98 12/03/19 05:45 Pain Score (VAS): 0 I/O: Intake & Output 12/02/19 12/03/19 12/03/19 23:59 07:59 15:59 Intake Total 1060 1400 Output Total 600 1800 Balance 460 -400 Laboratory Tests 12/03/19 06:01 12/03/19 06:01 12/02/19 12/02/19 12/02/19 07:26 08:47 10:40 WBC RBC Hgb 9.3 L Hct 27.3 L MCV MCH MCHC RDW Plt Count MPV Sodium Potassium Chloride Carbon Dioxide Anion Gap BUN Creatinine Estim Creat Clear Calc Estimated GFR Glucose POC Capillary Glucose 90 Calcium Magnesium Ferritin 125.00 TSH (Reflex) 2.810 12/02/19 12/02/19 12/02/19 12:03 13:02 17:38 WBC RBC Hgb Hct MCV MCH MCHC RDW Plt Count MPV Sodium Potassium Chloride Carbon Dioxide Anion Gap BUN Creatinine Estim Creat Clear Calc Estimated GFR Glucose POC Capillary Glucose 88 88 98 Calcium Magnesium Ferritin TSH (Reflex) 12/02/19 12/03/19 12/03/19 20:35 06:01 06:01 WBC 8.4 RBC 3.07 L Hgb 8.7 L Hct 26.0 L MCV 84.7 MCH 28.3 MCHC 33.5 RDW 12.9 Plt Count 188 MPV 9.2 Sodium 132 L Potassium 3.7 Chloride 99 Carbon Dioxide 29 Anion Gap 4 L BUN 13 D Creatinine 0.70 Estim Creat Clear Calc 128 Estimated GFR > 60 Glucose 93 POC Capillary Glucose 150 H Calcium 8.0 L Magnesium 2.1 Ferritin TSH (Reflex) Microbiology 12/01/19 11:23 Blood Blood Culture - Preliminary 12/01/19 10:39 Blood Blood Culture - Preliminary Post-procedural complaints: none Patient Feedback: Patient satisfied with anesthetic care.
[2019-12-03 08:21] LABS: Glucose Point of Care 93 (65-105)
--- NOTE | 2019-12-03 09:53 | PM.DS ---
DS: Admitting Diagnosis Admitting Diagnosis Admitting Diagnosis: Hypotension, SIRS DS: Discharge Diagnosis Discharge Diagnosis (1) Anemia due to blood loss: Code(s): D50.0 - Iron deficiency anemia secondary to blood loss (chronic) Status: Acute Assessment and Plan: Likely due to Upper GI bleed given reports of melena and associated hypotension. He had received 2 Units of pRBCs yesterday morning. Dr. Epperson was consulted and preformed an EGD showing acute gastric ulcers H&H is stable at 8.7/26%. Overall he has clinically improved. Has chronic Nsaid use; we discussed refraining from NSAID use after discharge. Denies excessive alcohol use. Continue PPI BID and follow up with Dr. Epperson as an outpatient in a few weeks for further evaluation. 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 No BMs today. Due to gastric ulcers from NSAID use (3) Acute hypotension: Code(s): I95.9 - Hypotension, unspecified Status: Acute Assessment and Plan: Likely related to poor PO intake, as well as, likely acute GI blood loss, likely upper GI given reports of melena. Patient received 2 u pRBCs and BP has improved today. Acute infection appears to be less likely. He is tolerating PO without any issues. Feeling much better, no lightheadedness, dizziness. Continue home medications. (4) Diabetic neuropathy: Code(s): E11.40 - Type 2 diabetes mellitus with diabetic neuropathy, unspecified Status: Chronic Assessment and Plan: Continue with gabapentin. (5) Osteomyelitis of fifth toe of left foot: Code(s): M86.9 - Osteomyelitis, unspecified Status: Acute Assessment and Plan: The patient recently had surgery at [facility] per Dr. Sousa. WC consulted; discussed with WC nurse and there are no signs of acute infection on exam. Patient has follow up with Dr. Sousa at 2:30 pm today. The patient will be discharged to follow up in his office for further evaluation post-op, wound care. (6) SIRS (systemic inflammatory response syndrome): Code(s): R65.10 - Systemic inflammatory response syndrome (SIRS) of non-infectious origin without acute organ dysfunction Status: Acute Assessment and Plan: Patient hypotensive with leukocytosis, although this appears to be more related to acute blood loss anemia and associated hypotension. Acute infection felt to be less likely at this time. Lactic acid has normalized. Leukocytosis could possibly be from his recent surgery. Leukocytosis normalized. Vitals stable. No acute signs of infection. (7) Acute dehydration: Code(s): E86.0 - Dehydration Status: Acute Assessment and Plan: From poor PO intake prior to arrival Much improved, tolerating PO. (8) Hyperlipidemia: Code(s): E78.5 - Hyperlipidemia, unspecified Status: Chronic Assessment and Plan: Patient is not on any medication. (9) Chronic GERD: Code(s): K21.9 - Gastro-esophageal reflux disease without esophagitis Status: Chronic Assessment and Plan: Will be discharged on Pantoprazole 40 mg BID (10) Hypertension: Qualifiers: Hypertension type: essential hypertension Qualified Code(s): I10 - Essential (primary) hypertension Code(s): I10 - Essential (primary) hypertension Status: Chronic Assessment and Plan: BP soft on arrival and normal today. Lisinopril held Much improved. Continue home medications at discharge.
--- NOTE | 2019-12-03 11:58 | WPDGICN ---
Assessment and Plan Additional Plan Patient feels good today. Tolerating diet. No additional bleeding noted. Physical exam reveals patient to be alert. Abdomen is soft nontender with no organomegaly. Nontender. Impression 1. Gastric ulcerations. Appear to be related to nonsteroidal anti-inflammatory agent use. Patient advised to stop NSAIDs. Continue Protonix. Follow-up EGD in 2 months advised. 2. History of toe amputation. Status post osteomyelitis. 3. Diabetes mellitus. GI Consult Note Consult date/time: 12/03/19 11:58 HPI: Teodoro Shelton is a 59 year old male [facility] Past Medical History Medical History Chronic GERD Depression Diabetes mellitus type 2 Diabetic neuropathy Hyperlipidemia Hypertension Obstructive sleep apnea the patient has lost some weight no longer uses a CPAP machine. S/P ORIF (open reduction internal fixation) fracture right elbow Surgical History Surgical History H/O elbow surgery H/O foot surgery bilateral feet for possible hammertoe. He had to be admitted to his right 5th toe x2. He had the left 5th toe amputated November of 2019 H/O knee surgery H/O rotator cuff surgery bilaterally H/O umbilical hernia repair History of arthroplasty of right knee History of cholecystectomy S/P foot surgery, right Family History Family History Father Heart disease Hypertension Mother Heart disease Hypertension Sibling Lung cancer Cerebrovascular accident Hypertension Grandparent Diabetes mellitus Other Family history of alcoholism Family history of arthritis Family history of malignant neoplasm Social History Social History Social History: the patient is to Smitha who is his durable power managing attorney for healthcare. The patient is a full code. Patient has 1 biological son and 3 step children. The patient has a job at [employer] but has not worked there 2 months due to his foot. The patient continues to smoke a half a pack to a pack a cigarettes a day. Patient uses alcohol socially Na monitor balderas. Smoking packs per day: 1 Smoking cigarettes per day: 20.0 Smoking status: Heavy tobacco smoker Tobacco type: cigarettes Alcohol intake: current Substance use: unknown Living arrangements: with family Occupation/Education: occupation Additional occupation/education comments: works at [employer] Gender identity (if verbalized by the patient): Male Sexual Orientation (if Verbalized by the Patient): Straight or Heterosexual Spiritual care concerns: No Meds Home Medications and Allergies Home Medications Medication Instructions Recorded Confirmed Type Lantus U-100 Insulin 50 unit SUBCUT QPM 09/24/19 12/01/19 History gabapentin 300 mg PO TID 09/24/19 12/01/19 History lisinopril 10 mg PO DAILY 09/24/19 12/01/19 History pantoprazole 40 mg PO BID 28 Days #56 tablet 12/03/19 Rx Allergies Allergy/AdvReac Type Severity Reaction Status Date / Time No Known Allergies Allergy Verified 12/02/19 11:55 Vital Signs Vital Signs - 24 hr 12/02/19 11:59 12/02/19 12:46 12/02/19 12:55 Temperature 97.3 F L Pulse Rate 64 77 68 Respiratory Rate 18 34 H 15 Blood Pressure 120/74 142/80 H 159/91 H Pulse Oximetry 99 100 95 12/02/19 13:06 12/02/19 14:00 12/02/19 16:00 Temperature 97.1 F L Pulse Rate 80 81 66 Respiratory Rate 28 H 18 Blood Pressure 136/81 143/72 H Pulse Oximetry 94 100 12/02/19 20:00 12/02/19 21:53 12/03/19 00:00 Temperature 97.2 F L Pulse Rate 76 76 76 Respiratory Rate 16 16 Blood Pressure 119/72 Pulse Oximetry 98 98 12/03/19 04:00 12/03/19 05:45 12/03/19 08:00 Temperature 97.3 F L Pulse Rate 76 64 90 Respiratory Rate 18 Blood Pressure 135/75 Pu
== END 2019-12-03 12:03 | disposition home or self-care (01) | DRG 378 ==
LOC: ANHED 12:07 → ANH3MEDSUR 15:20
PROVIDERS: Internal Medicine Gastroenterology; Nurse Practitioner; Physician Assistant; Admitting Provider Internal Medicine; Emergency Provider Family Medicine; Visit Provider Physician Assistant
PROC: 0DJ08ZZ Inspection of Upper Intestinal Tract, Via Natural or Artificial Opening Endoscopic (ICD-10-PCS; CPT 43235; principal; 2019-12-02 12:30)
DX: K25.0 Acute gastric ulcer with hemorrhage (principal); R65.10 Systemic inflammatory response syndrome (SIRS) of non-infectious origin without acute organ dysfunction; M86.8X7 Other osteomyelitis, ankle and foot; D62 Acute posthemorrhagic anemia; E11.69 Type 2 diabetes mellitus with other specified complication; B96.5 Pseudomonas (aeruginosa) (mallei) (pseudomallei) as the cause of diseases classified elsewhere; I95.9 Hypotension, unspecified; E11.40 Type 2 diabetes mellitus with diabetic neuropathy, unspecified; E86.0 Dehydration; T39.395A Adverse effect of other nonsteroidal anti-inflammatory drugs [NSAID], initial encounter; K21.9 Gastro-esophageal reflux disease without esophagitis; E78.5 Hyperlipidemia, unspecified; I10 Essential (primary) hypertension; F17.210 Nicotine dependence, cigarettes, uncomplicated; G47.33 Obstructive sleep apnea (adult) (pediatric); Z96.651 Presence of right artificial knee joint; Z23 Encounter for immunization; Z79.4 Long term (current) use of insulin; Z89.422 Acquired absence of other left toe(s)
CPT/HCPCS: 36415; 36430; 71046; 73620; 80048; 80053; 81001; 82728; 83036; 83605; 83615; 83735; 84443; 84484; 85014; 85018; 85025; 85027; 85610; 85730; 86140; 86850; 86900; 86901; 86920; 87040; 87070; 87077; 87186; 87205; 88305; 88342; 90471; 90653; 93005; 96360; 99285; A9270; C9113; G0008; J0692; J0743; J2704; J3370; J7030; J7050; J7120; P9016

== ENCOUNTER 2022-11-16 13:23 | Outpatient (CLI) | payer OTHER, SELFPAY ==
--- NOTE | 2022-11-16 14:10 | NEURO_ITS ---
Impression: # Known insulin dependent diabetic of long duration complains of increasing weakness in upper and lower extremities. # Distal more than proximal motor and sensory neuropathy lower extremities more than upper extremities With temporal dispersion proximally as well. # No responses noted in the lower extremities. # Needle/EMG exam revealed neurogenic changes in the muscles with some myopathic responses as well but no myotonia or fibs. Nerve Conduction Studies Anti Sensory Summary Table Stim Site NR Peak (ms) P-T Amp (?V) Site1 Site2 Delta-P (ms) Dist (cm) Marlon (m/s) Left Median Anti Sensory (2-3nd Digit) Wrist 5.2 7.7 Wrist 2-3nd Digit 5.2 14.0 27 Wrist 5.3 10.2 Wrist 2-3nd Digit 5.2 14.0 27 Right Median Anti Sensory (2-3nd Digit) Wrist 5.0 6.5 Wrist 2-3nd Digit 5.0 14.0 28 Wrist 4.5 5.5 Wrist 2-3nd Digit 5.0 14.0 28 Left Radial Anti Sensory (Base 1st Digit) Wrist 3.7 5.0 Wrist Base 1st Digit 3.7 0.0 Right Radial Anti Sensory (Base 1st Digit) Wrist 3.1 9.8 Wrist Base 1st Digit 3.1 0.0 Left Sup Fibular Anti Sensory (Ant Lat Mall) NO RESPONSE 14 cm NR 14 cm Ant Lat Mall 16.0 Right Sup Fibular Anti Sensory (Ant Lat Mall) NO RESPONSE 14 cm NR 14 cm Ant Lat Mall 16.0 Left Sural Anti Sensory (Lat Mall) NO RESPONSE Calf NR Calf Lat Mall 16.0 Right Sural Anti Sensory (Lat Mall) NO RESPONSE Calf NR Calf Lat Mall 16.0 Left Ulnar Anti Sensory (5th Digit) Wrist 4.0 6.6 Wrist 5th Digit 4.0 14.0 35 Right Ulnar Anti Sensory (5th Digit) Wrist 4.6 14.9 Wrist 5th Digit 4.6 14.0 30 Motor Summary Table Stim Site NR Onset (ms) O-P Amp (mV) Site1 Site2 Delta-0 (ms) Dist (cm) Marlon (m/s) Left Median Motor (Abd Poll Brev) Wrist 3.8 6.2 Elbow Wrist 6.0 31.0 52 Elbow 9.8 1.8 Right Median Motor (Abd Poll Brev) Wrist 3.8 5.2 Elbow Wrist 6.1 30.0 49 Elbow 9.9 4.2 Left Peroneal Motor (Vastus Med) NO RESPONSE Ankle NR Popit Ankle 0.0 Popit NR Right Peroneal Motor (Vastus Med) NO RESPONSE Ankle NR Popit NR Left Tibial Motor (Abd Royal Brev) NO RESPONSE Ankle NR Knee NR Right Tibial Motor (Abd Royal Brev) NO RESPONSE Ankle NR Knee NR Left Ulnar Motor (Abd Dig Minimi) Wrist 4.1 2.1 A Elbow Wrist 7.1 33.0 46 A Elbow 11.2 1.4 B Elbow Wrist 5.4 26.0 48 B Elbow 9.5 1.9 Right Ulnar Motor (Abd Dig Minimi) Wrist 4.1 0.5 A Elbow Wrist 8.4 33.0 39 A Elbow 12.5 0.1 B Elbow Wrist 4.3 22.0 51 B Elbow 8.4 0.2 F Wave Studies NR F-Lat (ms) L-R F-Lat (ms) Left Median (Mrkrs) (Abd Poll Brev) 31.95 0.51 Right Median (Mrkrs) (Abd Poll Brev) 32.46 0.51 Left Peroneal (Mrkrs) (EDB) NO RESPONSE NR Right Peroneal (Mrkrs) (EDB) NO RESPONSE NR Left Tibial (Mrkrs) (Abd Hallucis) NO RESPONSE NR Right Tibial (Mrkrs) (Abd Hallucis) NO RESPONSE NR Left Ulnar (Mrkrs) (Abd Dig Min) DISPERSED RESPONSE NR Right Ulnar (Mrkrs) (Abd Dig Min) DISPERSED RESPONSE NR EMG Side Muscle Nerve Root Ins Act Fibs Amp Dur Recrt Comment Right 1stDorInt Ulnar C8-T1 Nml Nml Nml Nml Nml Right Ext Indicis Ra
== END 2022-11-16 13:24 | disposition home or self-care (01) ==
PROVIDERS: PCP Physician Assistant; Visit Provider Physician Assistant
DX: R20.2 Paresthesia of skin (principal)
CPT/HCPCS: 95886; 95913

== ENCOUNTER 2023-06-11 13:35 | Outpatient (CLI) | payer OTHER, SELFPAY ==
--- NOTE | ~2023-06-11 | MR_ITS ---
EXAMINATION: MR cervical spine wo con DATE: 06/11/2023 14:28 INDICATION: Weakness of both hands. TECHNIQUE: Magnetic resonance imaging (MRI) of the cervical spine was performed without intravenous c ontrast. COMPARISON: None FINDINGS: There is 2 mm retrolisthesis of C3 on C4, 2 mm anterolisthesis of C4 on C5, and 3 mm ariel listhesis of C7 on T1. There is mild chronic anterior wedging of T1 vertebral body. There is severely decreased disc height at C3-C4, moderately decreased disc height at C4-C5, severely decreased disc h eight at C5-C6 and C6-C7, and moderately decreased disc height at C7-T1. The spinal cord signal inten sity is normal. The following disc levels are specifically discussed: C2-C3: The disc does not extend beyond the endplate margin. There is ankylosis of the uncovertebral j oints without hypertrophy. There is ankylosis of right facet joint without hypertrophy. There is no n eural foraminal stenosis. There is no central canal stenosis. C3-C4: The disc is bulging. There is severe bilateral uncovertebral joint osteoarthritis. There is se izabel bilateral facet joint osteoarthritis. There is moderate bilateral neural foraminal stenosis. The re is moderate central canal stenosis with ventral and dorsal indentation of the spinal cord. C4-C5: There is a central extrusion There is severe bilateral uncovertebral joint osteoarthritis. The re is severe bilateral facet joint osteoarthritis. There is moderate bilateral neural foraminal steno sis. There is severe central canal stenosis with ventral and dorsal indentation of the spinal cord. C5-C6: The disc is bulging. There is severe bilateral uncovertebral joint osteoarthritis. There is mi ld bilateral facet joint osteoarthritis. There is moderate bilateral neural foraminal stenosis. There is moderate central canal stenosis with ventral and dorsal indentation of spinal cord. C6-C7: This is bulging. There is severe bilateral uncovertebral joint osteoarthritis. There is severe right and moderate left facet joint osteoarthritis. There is moderate bilateral neural foraminal miya nosis. There is moderate central canal stenosis with ventral and dorsal indentation of the spinal cor d. C7-T1: The disc is bulging. There is severe bilateral uncovertebral joint osteoarthritis. There is se izabel right and moderate left facet joint osteoarthritis. There is moderate bilateral neural foraminal stenosis. There is moderate central canal stenosis with ventral and dorsal indentation of the spinal cord. IMPRESSION: 1. Severe cervical spondylosis. Reviewed, dictated and finalized at location E.
== END 2023-06-11 13:36 | disposition home or self-care (01) ==
PROVIDERS: PCP Physician Assistant; Visit Provider Student in an Organized Health Care Education/Training Program
DX: R29.898 Other symptoms and signs involving the musculoskeletal system (principal); G56.20 Lesion of ulnar nerve, unspecified upper limb; E11.40 Type 2 diabetes mellitus with diabetic neuropathy, unspecified; M47.892 Other spondylosis, cervical region
CPT/HCPCS: 72141

== ENCOUNTER 2023-09-17 12:50 | Outpatient (CLI) | payer MEDICARE, SELFPAY ==
--- NOTE | ~2023-09-17 | MR_ITS ---
MRI of the brain Clinical History: Ataxia Technique: Axial and sagittal T1-weighted images were acquired. These were followed by axial T2-weigh pantera, diffusion weighted, gradient, and FLAIR images. Findings: There is no acute infarct, intracranial hemorrhage, mass lesion. There are probable minimal chronic white matter changes in the periventricular white matter bilaterally. Ventricles and subarachnoid spaces are unremarkable. Orbits are unremarkable. Paranasal sinuses and m astoid air cells are clear. Major intracranial flow voids appear intact. Sagittal midline structures are intact. IMPRESSION: No acute infarct, intracranial hemorrhage, mass lesion. Minimal chronic microvascular ischemic changes. Reviewed, dictated and finalized at location M.
== END 2023-09-17 12:51 | disposition home or self-care (01) ==
LOC: ANHIMG 12:51
PROVIDERS: PCP Internal Medicine; Visit Provider Psychiatry & Neurology Neurology
DX: E11.42 Type 2 diabetes mellitus with diabetic polyneuropathy (principal); G56.23 Lesion of ulnar nerve, bilateral upper limbs; R27.0 Ataxia, unspecified; Z87.828 Personal history of other (healed) physical injury and trauma
CPT/HCPCS: 70551

== ENCOUNTER 2023-09-27 14:33 | Outpatient (CLI) | payer MEDICARE, SELFPAY ==
[2023-09-27 15:05] LABS: Anion Gap 10 mmol/L (4-12); Blood Urea Nitrogen 12 mg/dL (9-20); Calcium 8.6 mg/dL (8.4-10.2); Carbon Dioxide 29 mmol/L (22-30); Chloride 92 mmol/L (98-107); Estimated Glomerular Filt Rate > 60; Glucose 161 mg/dL (65-110); Sodium 131 mmol/L (137-145)
== END 2023-09-27 14:34 | disposition home or self-care (01) ==
PROVIDERS: PCP Physician Assistant; Visit Provider Anesthesiology
DX: Z01.818 Encounter for other preprocedural examination (principal); E11.9 Type 2 diabetes mellitus without complications
CPT/HCPCS: 36415; 80048

== ENCOUNTER 2023-09-28 01:49 | Day surgery (SDC) | payer MEDICARE, OTHER, SELFPAY ==
[2023-09-27 12:06] VITALS: BMI 35.0
--- NOTE | 2023-09-27 12:15 | PC.NURSE ---
Report to the Outpatient Waiting Room, entrance under the green pavilion located off [facility], at time _0830_ on date _[id number]_. Planned Procedure Time: _1030_. Time changes happen often and if your time is changed the preop area will call you the afternoon before. - You and your visitor will be asked to self-screen and do not enter if you have any COVID symptoms. - A mask is optional within the hospital at this time. May have clear liquids (water, carbonated beverages, clear teas, apple juice) with a maximum of 20 ounces until 230am then nothing to drink until after surgery . - No food from midnight until time of surgery Take the following medications with a SIP of water the morning of surgery: ___None__ DO NOT STOP ANY OF YOUR OTHER PRESCRIPTION MEDICATIONS PRIOR TO SURGERY ?EXCEPT THE FOLLOWING Medications to discontinue per physician None Date to take last dose Please no make-up, nail omani, hairspray, perfume, deodorant, or body powder the day of surgery. No jewelry (including any body piercings) or valuables the day of surgery, leave them at home. Please take a shower or bath the night before, or the morning of, surgery with an antibacterial soap. Wear comfortable, loose fitting clothing. - Jewelry must be removed prior to entering the operating room. Rings and piercings that are not removed may be cut off. - The hospital will not accept responsibility for valuables. - Please leave all valuables, including medications, at home the day of surgery. If you are going home after surgery, a licensed tank wagon driver must drive you home. - NO public transportation without another adult if you receive anesthesia. - We recommend that an adult stay with you for 24 hours following discharge. - We also recommend that you do not drive, make important decision, drink alcoholic beverages, or take any drugs that were not prescribed by your health care provider for at least 24 hours after your discharge time. Follow any additional instructions given to you from your surgeon. If you or anyone in your household have experienced Covid symptoms in the past week, please notify your surgeon or the nurse liaison at the phone number below for possible testing. Telephone instructions given to ___George___and asked if any additional questions and then verbalized understanding. Patient advised to call surgeon office or pre surgery nurse liaison [phone] if any additional questions.
[2023-09-28] VITALS (7 sets, daily range): BP systolic 128–187; BP diastolic 67–88; PULSE 57–71; RESP 12–16; TEMP 36.7–36.9; O2SAT 96–99; BMI 35.8
--- NOTE | 2023-09-28 07:00 | PM.HPGS ---
History of Present Illness History of Present Illness Chief complaint: right carpal tunnel syndrome, lesion rt ulnar nerv Narrative: Patient seen and examined in pre-operative holding area. No interval change in medical history or symptoms. Patient recalls previous discussion of benefits and alternatives to procedure. Continues to desire to proceed with right endoscopic possible open carpal tunnel release and right cubital tunnel release . Reviewed procedure, post-op expectations and risks including but not limited to bleeding, infection, injury to tendon/nerve/vessel, decreased hand function, stiffness, RSD, no change or worsening of symptoms. I discussed the possible use of assistants and their participation in the case. Patient stated understanding and signed the consent form wishing to proceed. Review of Systems Review of Systems: All systems reviewed & are unremarkable except as noted in HPI and below PMFSH Past Medical History Medical History (Updated 08/16/23 @ 13:42 by Khari Arriaga MD) Ataxia Chronic GERD Depression Diabetes mellitus type 2 Diabetic neuropathy Diabetic polyneuropathy Hyperlipidemia Hypertension Obstructive sleep apnea the patient has lost some weight no longer uses a CPAP machine. Ulnar neuropathy of both upper extremities Surgical History Surgical History H/O elbow surgery H/O foot surgery bilateral feet for possible hammertoe. He had to be admitted to his right 5th toe x2. He had the left 5th toe amputated November of 2019 H/O knee surgery H/O rotator cuff surgery bilaterally H/O umbilical hernia repair History of arthroplasty of right knee History of cholecystectomy S/P foot surgery, right S/P ORIF (open reduction internal fixation) fracture right elbow Family History Family History Father Heart disease Hypertension Mother Heart disease Hypertension Sibling Lung cancer Cerebrovascular accident Hypertension Grandparent Diabetes mellitus Other Family history of alcoholism Family history of arthritis Family history of malignant neoplasm Social History Social History Social History: the patient is to [place] who is his durable power door slinger for healthcare. The patient is a full code. Patient has 1 biological son and 3 step children. The patient has a job at [employer] but has not worked there 2 months due to his foot. The patient continues to smoke a half a pack to a pack a cigarettes a day. Patient uses alcohol socially Na barbra balderas. Smoking packs per day: 1 Smoking cigarettes per day: 20.0 Years smoked: 40 Smoking pack-years: 40.00 Smoking status: Current every day smoker Tobacco type: cigarettes Alcohol intake: current Alcohol use details: 1 per month Substance use: former Substance use type: marijuana Other substance usage details: Gummies occasionally Do You Feel Safe in your Home?: Yes Lack of Transportation: No Lack of Food: Never True Current Housing: I Have Housing Concerned About Future Housing: No Difficulty Paying Gas/Electric Bills: No Difficulty Paying for Meds: No Currently Unemployed: No Education: High School Diploma/GED Difficulty w/ Childcare or Family Care: No Living arrangements: with family Occupation/Education: occupation Additional occupation/education comments: works at [employer] Gender identity (if verbalized by the patient): Male Sexual Orientation (if Verbalized by the Patient): Straight or Heterosexual Spiritual care concerns: No Meds Home Medications and Allergies Home Medications Medication Instructions Recorded Confirmed Type lisinopril 10 mg tablet 10 mg PO DAILY #90 tabs 10/11/22 09/27/23 Rx Tresiba FlexTouch U-100 100 30 unit (0.3 mL) subcut DAILY #27 05/12/23 09/27/23 Rx unit/m
--- NOTE | 2023-09-28 07:00 | W.PM.PROC2 ---
Procedure Note - Detailed Date of Procedure 09/28/23 Pre-op Diagnosis right carpal and cubital tunnel syndrome Post-op Diagnosis Same Procedure Performed right ectr and CuTR Surgeon Olivia Pressley MD Complex Care Nurse Practitioner flavio jean baptiste pa-c Anesthesia General Description of Procedure INFORMED CONSENT: The patient was seen and examined and marked in the pre-op area.? The patient signed the consent form. PROCEDURE IN DETAIL:The patient taken back to OR on the stretcher in supine position. Time out performed with anesthesia, surgeon and staff agreeing on patient's name site and surgery to be performed SCDs were placed on the lower extremities and inflated. A tourniquet was placed on {right} upper extremity and antibiotics given IV After anesthesia administered sedation I injected {10}cc 1%lido with epi and 0.5% marcaine plain at the operative sites The?{right upper extremity}?was prepped and draped in sterile fashion the??{right upper extremity} was? exsanguinated with Esmarch bandage and tourniquet inflated to 250mmHg I made a transverse incision in the {right} volar distal wrist crease through skin and dermis with 15 blade scalpel.? Littler scissors spread down to antebrachial fascia. A small incision was made in antebrachial fascia allowing access to Carpal tunnel. I proceeded with sequential dilation staying in line with the ring finger and hugging the hook of the hamate.? I then used the synovial elevator to free any adhesions from the underside of the transverse carpal ligament. Next I was able to insert the Microaire endoscopic carpal tunnel device with direct visualization of the transverse fibers on the monitor and proceeded with complete segmental retrograde release of the ligament in its entirety.? I irrigated with normal saline and closed with 4-0 monocryl for dermis and subcuticular closure. I next proceeded with making a longitudinal incision between two heads for flexor carpi ulnaris at end of {right} cubital tunnel with 15 blade scalpel.? Littler scissors were used to spread down to FCU fascia.? An incision was made in FCU fascia and ulnar nerve identified exiting cubital tunnel.? I proceeded with complete retrograde release of the cubital tunnel including 7cm proximal for the intermuscular septum.? The nerve appeared very atrophic and sclerotic in appearance.? There was no subluxation on full elbow range of motion. ? I irrigated with normal saline and closure with 4-0 monocryl for dermis and subcuticular. The incisions were covered with Dermabond then 4x4s, nate, and a posterior elbow and volar wrist splint for patient safety, security and comfort and secured with ximena bandages after the tourniquet was let down noting the hand was warm and well perfused.? Patient awaken from anesthesia and transferred to recovery in stable condition Complications - none EBL- 1cc Disposition - home in stable conditions [facility] Billing Surgery - Charge Forward: Surgery Billing ([id number] for flavio)
[2023-09-28] MEDS: SODIUM CHLORIDE 0.9% IV 1,000 ML 30 ML IV CONT (09:45)
[2023-09-28] MEDS: LACTATED RINGERS 1,000 ML 30 ML IV CONT (09:45)
--- NOTE | 2023-09-28 09:55 | SUR.PREOP ---
[id number]- Notified Dr. Malone patient's blood glucose 72 and experiencing dizziness. Orders obtained for 1/2 half amp of D50. Orders placed and given to patient, see APR.
[2023-09-28 09:59] LABS: Glucose Point of Care 72 mg/dl (65-105)
--- NOTE | 2023-09-28 10:00 | WPDANESEPPF ---
Anes - Initial Pre Proc Eval Procedure: Operation Date: 09/28/23 10:30 Proposed Procedures p Right Endoscopic Carpal Tunnel Release, Possible Open, Right Cubital Tunnel Release - Olivia Pressley MD Date/Time: 09/28/23 10:00 Surgeon: Olivia Pressley MD Pre Op Diagnosis: right carpal tunnel syndrome, lesion rt ulnar nerv Patient Data Age: 63 Gender: M Height: 1.85 m Weight: 123.2 kg Allergies Allergy/AdvReac Type Severity Reaction Status Date / Time No Known Allergies Allergy Verified 09/27/23 12:05 Home Medications Medication Instructions Recorded Confirmed Type lisinopril 10 mg tablet 10 mg PO DAILY #90 tabs 10/11/22 09/27/23 Rx Tresiba FlexTouch U-100 100 30 unit (0.3 mL) subcut DAILY #27 05/12/23 09/27/23 Rx unit/mL (3 mL) subcutaneous pen mL (insulin degludec) thiamine HCl (vitamin B1) 100 mg 50 mg PO DAILY #30 tabs 06/13/23 09/27/23 Rx tablet Laboratory Tests 09/28/23 09:45 POC Capillary Glucose 72 mg/dl (65-105) Patient hx anesthesia problems: none Family hx anesthesia problems: none Results Review: All pre-operative results and documents have been reviewed as part of the pre-operative evaluation. [facility] Past Medical History Medical History Ataxia Chronic GERD Depression Diabetes mellitus type 2 Diabetic neuropathy Diabetic polyneuropathy Hyperlipidemia Hypertension Obstructive sleep apnea the patient has lost some weight no longer uses a CPAP machine. Ulnar neuropathy of both upper extremities Surgical History Surgical History H/O elbow surgery H/O foot surgery bilateral feet for possible hammertoe. He had to be admitted to his right 5th toe x2. He had the left 5th toe amputated November of 2019 H/O knee surgery H/O rotator cuff surgery bilaterally H/O umbilical hernia repair History of arthroplasty of right knee History of cholecystectomy S/P foot surgery, right S/P ORIF (open reduction internal fixation) fracture right elbow Family History Family History Father Heart disease Hypertension Mother Heart disease Hypertension Sibling Lung cancer Cerebrovascular accident Hypertension Grandparent Diabetes mellitus Other Family history of alcoholism Family history of arthritis Family history of malignant neoplasm Social History Social History Social History: the patient is to [place] who is his durable power criminal defense attorney for healthcare. The patient is a full code. Patient has 1 biological son and 3 step children. The patient has a job at [employer] but has not worked there 2 months due to his foot. The patient continues to smoke a half a pack to a pack a cigarettes a day. Patient uses alcohol socially Na monitor balderas. Smoking packs per day: 1 Smoking cigarettes per day: 20.0 Years smoked: 40 Smoking pack-years: 40.00 Smoking status: Current every day smoker Tobacco type: cigarettes Alcohol intake: current Alcohol use details: 1 per month Substance use: former Substance use type: marijuana Other substance usage details: Gummies occasionally Do You Feel Safe in your Home?: Yes Lack of Transportation: No Lack of Food: Never True Current Housing: I Have Housing Concerned About Future Housing: No Difficulty Paying Gas/Electric Bills: No Difficulty Paying for Meds: No Currently Unemployed: No Education: High School Diploma/GED Difficulty w/ Childcare or Family Care: No Living arrangements: with family Occupation/Education: occupation Additional occupation/education comments: works at [employer] Gender identity (if verbalized by the patient): Male Sexual Orientation (if Verbalized by the Patient): Straight or Heterosexual Spiritual care jduy
[2023-09-28] MEDS: DEXTROSE 50% 25 GM/50 ML SYRINGE IV PUSH (10:02)
[2023-09-28 10:25] LABS: Glucose Point of Care 114 mg/dl (65-105)
[2023-09-28] MEDS: ceFAZolin 3 GM/D5W 100 ML 100 ML IVPB (10:39)
[2023-09-28] MEDS: LIDO 1%/EPINEPHRINE 1:100,000 50 ML VIAL 20 ML INFILTRATE (11:01)
[2023-09-28] MEDS: BUPivacaine HCL 0.5% 10 ML AMP 20 ML INFILTRATE (11:01)
[2023-09-28 11:25] LABS: Glucose Point of Care 91 mg/dl (65-105)
== END 2023-09-28 12:43 | disposition home or self-care (01) ==
PROVIDERS: PCP Physician Assistant; Visit Provider Plastic Surgery
PROC: 01N54ZZ Release Median Nerve, Percutaneous Endoscopic Approach (ICD-10-PCS; CPT 29848; principal; 2023-09-28 10:30)
DX: G56.01 Carpal tunnel syndrome, right upper limb (principal); G56.23 Lesion of ulnar nerve, bilateral upper limbs; I10 Essential (primary) hypertension; E78.5 Hyperlipidemia, unspecified; K21.9 Gastro-esophageal reflux disease without esophagitis; F32.A Depression, unspecified; E11.42 Type 2 diabetes mellitus with diabetic polyneuropathy; G47.33 Obstructive sleep apnea (adult) (pediatric); F17.210 Nicotine dependence, cigarettes, uncomplicated; F12.90 Cannabis use, unspecified, uncomplicated; E66.9 Obesity, unspecified; Z68.35 Body mass index [BMI] 35.0-35.9, adult; Z79.85 Long-term (current) use of injectable non-insulin antidiabetic drugs; Z98.890 Other specified postprocedural states; Z90.49 Acquired absence of other specified parts of digestive tract; Z80.1 Family history of malignant neoplasm of trachea, bronchus and lung; Z82.49 Family history of ischemic heart disease and other diseases of the circulatory system
CPT/HCPCS: 64718; 29848; 82948; J0690; J1100; J2250; J2405; J2704; J3010; J7030; J7120

== ENCOUNTER 2023-12-15 12:32 | Outpatient (CLI) | payer MEDICARE, OTHER, SELFPAY ==
[2023-12-15 13:45] LABS: Anion Gap 9 mmol/L (4-12); Blood Urea Nitrogen 15 mg/dL (9-20); Calcium 8.7 mg/dL (8.4-10.2); Carbon Dioxide 27 mmol/L (22-30); Chloride 96 mmol/L (98-107); Estimated Glomerular Filt Rate > 60; Glucose 142 mg/dL (65-110); Potassium 4.4 mmol/L (3.4-5.0); Sodium 132 mmol/L (137-145)
== END 2023-12-15 12:33 | disposition home or self-care (01) ==
PROVIDERS: Anesthesiology; PCP Internal Medicine; Visit Provider Plastic Surgery
DX: Z01.812 Encounter for preprocedural laboratory examination (principal); E11.9 Type 2 diabetes mellitus without complications
CPT/HCPCS: 36415; 80048

== ENCOUNTER 2023-12-20 00:22 | Day surgery (SDC) | payer MEDICARE, OTHER, SELFPAY ==
[2023-12-13 10:35] VITALS: BMI 34.9
--- NOTE | 2023-12-13 11:03 | PC.NURSE ---
Report to the Outpatient Waiting Room, entrance under the green pavilion located off [facility], at time ___6:00AM____ on date ___12/20/23____. Planned Procedure Time: ___7:30AM .? Time changes happen often and if your time is changed the preop area will call you the afternoon before. - You and your visitor will be asked to self-screen and do not enter if you have any COVID symptoms. Please call surgeon if you need to reschedule. - A mask is optional within the hospital at this time. - No food from 11:30PM until time of surgery and no smoking PER DR DUMONT. Take only the following medications with a SIP of water on the morning of surgery: ___TRAMADOL NEEDED FOR PAIN DO NOT STOP ANY OF YOUR OTHER PRESCRIPTION MEDICATIONS PRIOR TO SURGERY EXCEPT THE FOLLOWING Medications to discontinue per physician ____HOLD ALL VITAMINS/SUPPLEMENTS 3 DAYS PRE-OP PER ANESTHESIA Date to take last dose 12/16/23 Please no make-up, nail south african, hairspray, perfume, deodorant, or body powder the day of surgery.? No jewelry (including any body piercings) or valuables the day of surgery, leave them at home.? Please take a shower or bath the night before, or the morning of, surgery with an antibacterial soap.? Wear comfortable, loose fitting clothing.? - Jewelry must be removed prior to entering the operating room.? Rings and piercings that are not removed may be cut off. - The hospital will not accept responsibility for valuables.? - Please leave all valuables, including medications, at home the day of surgery. If you are going home after surgery, a licensed yard truck driver must drive you home.? - NO public transportation without another adult if you receive anesthesia. - We recommend that an adult stay with you for 24 hours following discharge. - We also recommend that you do not drive, make important decision, drink alcoholic beverages, or take any drugs that were not prescribed by your health care provider for at least 24 hours after your discharge time. Follow any additional instructions given to you from your surgeon. Telephone instructions given to ___PATIENT and asked if any additional questions and then verbalized understanding. Patient advised to call surgeon office or pre surgery nurse liaison [phone] if any additional questions.
[2023-12-20] VITALS (7 sets, daily range): BP systolic 129–185; BP diastolic 60–86; PULSE 63–80; RESP 16–20; TEMP 35.8–36.6; O2SAT 96–100
[2023-12-20 06:45] LABS: Glucose Point of Care 171 mg/dl (65-105)
--- NOTE | 2023-12-20 06:53 | PM.HPGS ---
History of Present Illness History of Present Illness Chief complaint: left carpal and cubital tunnel syndrome Narrative: Patient seen and examined in pre-operative holding area. No interval change in medical history or symptoms. Patient recalls previous discussion of benefits and alternatives to procedure. Continues to desire to proceed with left endoscopic possible open carpal tunnel release and left cubital tunnel release . Reviewed procedure, post-op expectations and risks including but not limited to bleeding, infection, injury to tendon/nerve/vessel, decreased hand function, stiffness, RSD, no change or worsening of symptoms. I discussed the possible use of assistants and their participation in the case. Patient stated understanding and signed the consent form wishing to proceed Review of Systems Review of Systems: All systems reviewed & are unremarkable except as noted in HPI and below PMFSH Past Medical History Medical History Ataxia Chronic GERD Depression Diabetes mellitus type 2 Diabetic neuropathy Diabetic polyneuropathy Hyperlipidemia Hypertension Obstructive sleep apnea the patient has lost some weight no longer uses a CPAP machine. Ulnar neuropathy of both upper extremities Surgical History Surgical History H/O elbow surgery H/O foot surgery bilateral feet for possible hammertoe. He had to be admitted to his right 5th toe x2. He had the left 5th toe amputated November of 2019 H/O knee surgery H/O rotator cuff surgery bilaterally H/O umbilical hernia repair History of arthroplasty of right knee History of cholecystectomy S/P foot surgery, right S/P ORIF (open reduction internal fixation) fracture right elbow Family History Family History Father Heart disease Hypertension Mother Heart disease Hypertension Sibling Lung cancer Cerebrovascular accident Hypertension Grandparent Diabetes mellitus Other Family history of alcoholism Family history of arthritis Family history of malignant neoplasm Social History Social History Social History: the patient is to [place] who is his durable power senior trial attorney for healthcare. The patient is a full code. Patient has 1 biological son and 3 step children. The patient has a job at [employer] but has not worked there 2 months due to his foot. The patient continues to smoke a half a pack to a pack a cigarettes a day. Patient uses alcohol socially Na barbra balderas. Smoking packs per day: 1 Smoking cigarettes per day: 20.0 Years smoked: 45 Smoking pack-years: 45.00 Smoking status: Current every day smoker Tobacco type: cigarettes Alcohol intake: current Alcohol use details: 1 per month Substance use: former Substance use type: marijuana Other substance usage details: Gummies occasionally Do You Feel Safe in your Home?: Yes Lack of Transportation: No Lack of Food: Never True Current Housing: I Have Housing Concerned About Future Housing: No Difficulty Paying Gas/Electric Bills: No Difficulty Paying for Meds: No Currently Unemployed: No Education: High School Diploma/GED Difficulty w/ Childcare or Family Care: No Living arrangements: with family Additional living arrangements comments: SON Occupation/Education: occupation Additional occupation/education comments: works at [employer] Gender identity (if verbalized by the patient): Male Sexual Orientation (if Verbalized by the Patient): Straight or Heterosexual Spiritual care concerns: No Meds Home Medications and Allergies Home Medications Medication Instructions Recorded Confirmed Type lisinopril 10 mg tablet 10 mg PO DAILY #90 tabs 10/11/22 12/20/23 Rx thiamine HCl (vitamin B1) 100 mg 50 mg PO DAILY #30 tabs 06/13/23 12/20/23 Rx tablet tramadol 50 mg tablet 50 mg PO Q6H PRN pain #12 tabs 09/28/23 12/13/23 Rx ukojrxi-hgsgqzmhgowye-bgprpyxh 250 2 tablet PO Q4-6H PRN Pain 12/13/23 12/13/23 History mg-250 mg-65 mg tablet (Excedrin Extra Strength) cetirizine 10 mg tablet (Zyrtec) 10 mg PO DAILY 12/13/23 12/20/23 History folic acid 1 mg tablet 2 mg PO DAILY 12/13/23 12/20/23 History insulin degludec 100 unit/mL (3 30 unit subcut QACDINNER 12/13/23 12/20/23 History mL) subcutaneous pen (Tresiba FlexTouch U-100 insulin) magnesium 250 mg tablet 500 mg PO DAILY 12/13/23 12/20/23 History potassium 99 mg tablet 198 mg PO DAILY 12/13/23 12/20/23 History turmeric root extract 500 mg tablet 500 mg PO DAILY 12/13/23 12/20/23 History Allergies Allergy/AdvReac Type Severity Reaction Status Date / Time No Known Allergies Allergy Verified 12/20/23 06:25 Vital Signs Vital Signs - 24 hr 12/20/23 06:46 Temperature 35.8 C L Pulse Rate 63 Respiratory Rate 20 Blood Pressure 185/86 H Pulse Oximetry 99 Oxygen Delivery Room Air Exam Narrative: unchanged Assessment and Plan Assessment and plan (1) Ulnar neuropathy of both upper extremities: Code(s): G56.23 - Lesion of ulnar nerve, bilateral upper limbs Status: Acute Assessment and Plan: cont as above (2) Left carpal tunnel syndrome: Code(s): G56.02 - Carpal tunnel syndrome, left upper limb Status: Acute
--- NOTE | 2023-12-20 06:54 | W.PM.PROC2 ---
Procedure Note - Detailed Date of Procedure 12/20/23 Pre-op Diagnosis left carpal and cubital tunnel syndrome Post-op Diagnosis Same Procedure Performed left ectr amd CuTR Surgeon Olivia Pressley MD Electric Scoop Operator flavio jean baptiste pa-c Anesthesia MAC Description of Procedure INFORMED CONSENT: The patient was seen and examined and marked in the pre-op area.? The patient signed the consent form. PROCEDURE IN DETAIL:The patient taken back to OR on the stretcher in supine position. Time out performed with anesthesia, surgeon and staff agreeing on patient's name site and surgery to be performed SCDs were placed on the lower extremities and inflated. A tourniquet was placed on {left} upper extremity and antibiotics given IV After anesthesia administered sedation I injected {10}cc 1%lido with epi and 0.5% marcaine plain at the operative sites The?{left upper extremity}?was prepped and draped in sterile fashion the??{left upper extremity} was? exsanguinated with Esmarch bandage and tourniquet inflated to 250mmHg I made a transverse incision in the {left} volar distal wrist crease through skin and dermis with 15 blade scalpel.? Littler scissors spread down to antebrachial fascia. A small incision was made in antebrachial fascia allowing access to Carpal tunnel. I proceeded with sequential dilation staying in line with the ring finger and hugging the hook of the hamate.? I then used the synovial elevator to free any adhesions from the underside of the transverse carpal ligament. Next I was able to insert the Microaire endoscopic carpal tunnel device with direct visualization of the transverse fibers on the monitor and proceeded with complete segmental retrograde release of the ligament in its entirety.? I irrigated with normal saline and closed with 4-0 monocryl for dermis and subcuticular closure. I next proceeded with making a longitudinal incision between two heads for flexor carpi ulnaris at end of {left} cubital tunnel with 15 blade scalpel.? Littler scissors were used to spread down to FCU fascia.? An incision was made in FCU fascia and ulnar nerve identified exiting cubital tunnel.? I proceeded with complete retrograde release of the cubital tunnel including 7cm proximal for the intermuscular septum.? The nerve was extremely atrophic in appearance.? There was no subluxation on full elbow range of motion. ? I irrigated with normal saline and closure with 3-0 vicryl and 4-0 monocryl. The incisions were covered with Dermabond then 4x4s, nate, and a posterior elbow and volar wrist splint for patient safety, security and comfort and secured with ximena bandages after the tourniquet was let down noting the hand was warm and well perfused.? Patient awaken from anesthesia and transferred to recovery in stable condition Complications - none EBL- 1cc Disposition - home in stable conditions Flavio Jean Baptiste PA-C was essential for positioning, retraction, closure and dressing placement [facility] Billing Surgery - Charge Forward: Surgery Billing ([id number], [id number] same for flavio ratliff )
--- NOTE | 2023-12-20 07:21 | WPDANESEPPF ---
Anes - Initial Pre Proc Eval Procedure: Operation Date: 12/20/23 07:30 Proposed Procedures p Left Endoscopic Carpal Tunnel Release, Possible Open, Left Cubital Tunnel Release - Olivia Pressley MD Date/Time: 12/20/23 07:21 Surgeon: Olivia Pressley MD Pre Op Diagnosis: left carpal and cubital tunnel syndrome Patient Data Age: 63 Gender: M Height: 1.85 m Weight: 122.6 kg Last Vital Signs Temp 35.8 C L 12/20/23 06:46 Pulse 63 12/20/23 06:46 Resp 20 12/20/23 06:46 BP 185/86 H 12/20/23 06:46 Pulse Ox 99 12/20/23 06:46 O2 Del Method Room Air 12/20/23 06:46 Allergies Allergy/AdvReac Type Severity Reaction Status Date / Time No Known Allergies Allergy Verified 12/20/23 06:25 Home Medications Medication Instructions Recorded Confirmed Type lisinopril 10 mg tablet 10 mg PO DAILY #90 tabs 10/11/22 12/20/23 Rx thiamine HCl (vitamin B1) 100 mg 50 mg PO DAILY #30 tabs 06/13/23 12/20/23 Rx tablet tramadol 50 mg tablet 50 mg PO Q6H PRN pain #12 tabs 09/28/23 12/13/23 Rx rgwlaav-qdamlaoxzoxqu-xympvbhd 250 2 tablet PO Q4-6H PRN Pain 12/13/23 12/13/23 History mg-250 mg-65 mg tablet (Excedrin Extra Strength) cetirizine 10 mg tablet (Zyrtec) 10 mg PO DAILY 12/13/23 12/20/23 History folic acid 1 mg tablet 2 mg PO DAILY 12/13/23 12/20/23 History insulin degludec 100 unit/mL (3 30 unit subcut QACDINNER 12/13/23 12/20/23 History mL) subcutaneous pen (Tresiba FlexTouch U-100 insulin) magnesium 250 mg tablet 500 mg PO DAILY 12/13/23 12/20/23 History potassium 99 mg tablet 198 mg PO DAILY 12/13/23 12/20/23 History turmeric root extract 500 mg tablet 500 mg PO DAILY 12/13/23 12/20/23 History Laboratory Tests 12/20/23 06:42 POC Capillary Glucose 171 H mg/dl (65-105) Patient hx anesthesia problems: none Family hx anesthesia problems: none Results Review: All pre-operative results and documents have been reviewed as part of the pre-operative evaluation. [facility] Past Medical History Medical History Ataxia Chronic GERD Depression Diabetes mellitus type 2 Diabetic neuropathy Diabetic polyneuropathy Hyperlipidemia Hypertension Obstructive sleep apnea the patient has lost some weight no longer uses a CPAP machine. Ulnar neuropathy of both upper extremities Surgical History Surgical History H/O elbow surgery H/O foot surgery bilateral feet for possible hammertoe. He had to be admitted to his right 5th toe x2. He had the left 5th toe amputated November of 2019 H/O knee surgery H/O rotator cuff surgery bilaterally H/O umbilical hernia repair History of arthroplasty of right knee History of cholecystectomy S/P foot surgery, right S/P ORIF (open reduction internal fixation) fracture right elbow Family History Family History Father Heart disease Hypertension Mother Heart disease Hypertension Sibling Lung cancer Cerebrovascular accident Hypertension Grandparent Diabetes mellitus Other Family history of alcoholism Family history of arthritis Family history of malignant neoplasm Social History Social History Social History: the patient is to Smitha who is his durable power deputy prosecuting attorney for healthcare. The patient is a full code. Patient has 1 biological son and 3 step children. The patient has a job at [employer] but has not worked there 2 months due to his foot. The patient continues to smoke a half a pack to a pack a cigarettes a day. Patient uses alcohol socially Na monitor balderas. Smoking packs per day: 1 Smoking cigarettes per day: 20.0 Years smoked: 45 Smoking pack-years: 45.00 Smoking status: Current every day smoker Tobacco type: cigarettes Alcohol intake: current Alcohol use details: 1 per month Substance use: former Substance use type: marijuana Other substance usage details: Gummies occasionally Do You Feel Safe in your Home?: Yes Lack of Transportation: No Lack of Food: Never True Current Housing: I Have Housing Concerned About Future Housing: No Difficulty Paying Gas/Electric Bills: No Difficulty Paying for Meds: No Currently Unemployed: No Education: High School Diploma/GED Difficulty w/ Childcare or Family Care: No Living arrangements: with family Additional living arrangements comments: SON Occupation/Education: occupation Additional occupation/education comments: works at [employer] Gender identity (if verbalized by the patient): Male Sexual Orientation (if Verbalized by the Patient): Straight or Heterosexual Spiritual care concerns: No Anes - Eval Final PreProcedure Day of Procedure 12/20/23 07:21 Patient weight: obese Heart: regular rate and rhythm Lungs: clear to auscultation and normal air movement Airway: Mallampati scale class III and special considerations Neurological: alert and oriented Last oral intake: >/= 8 hours ASA classification: III Emergent: no Anesthetic plan: proceed Anesthesia type and monitoring: general GIVS Results Review: All pre-operative results and documents have been reviewed as part of the pre-operative evaluation. Informed Consent: The patient's anesthetic plan and its attendant risks and benefits were discussed with the patient/family/POA. Questions were solicited and answers provided to the satisfaction of the patient/family/POA.
[2023-12-20] MEDS: LIDO 1%/EPINEPHRINE/PF 1:200,000 30 ML VIAL 4.5 ML XX (07:52)
[2023-12-20] MEDS: BUPivacaine HCL 0.5% PF 30 ML VIAL 4.5 ML INFILTRATE (07:53)
[2023-12-20] MEDS: LACTATED RINGERS 1,000 ML 30 ML IV CONT (08:12)
[2023-12-20 08:21] LABS: Glucose Point of Care 159 mg/dl (65-105)
--- NOTE | 2023-12-20 16:58 | WPDANESEPPF ---
Anes - Initial Pre Proc Eval Procedure: Operation Date: 12/20/23 07:30 Proposed Procedures p Left Endoscopic Carpal Tunnel Release, Possible Open, Left Cubital Tunnel Release - Olivia Pressley MD Date/Time: 12/20/23 16:58 Surgeon: Olivia Pressley MD Pre Op Diagnosis: left carpal and cubital tunnel syndrome Patient Data Age: 63 Gender: M Height: 1.85 m Weight: 122.6 kg Last Vital Signs Temp 36.6 C 12/20/23 08:12 Pulse 68 12/20/23 09:10 Resp 20 12/20/23 09:10 BP 158/60 H 12/20/23 09:10 Pulse Ox 100 12/20/23 08:45 O2 Del Method Room Air 12/20/23 09:10 O2 Flow Rate 8 12/20/23 08:12 Allergies Allergy/AdvReac Type Severity Reaction Status Date / Time No Known Allergies Allergy Verified 12/20/23 06:25 Home Medications Medication Instructions Recorded Confirmed Type lisinopril 10 mg tablet 10 mg PO DAILY #90 tabs 10/11/22 12/20/23 Rx thiamine HCl (vitamin B1) 100 mg 50 mg PO DAILY #30 tabs 06/13/23 12/20/23 Rx tablet tramadol 50 mg tablet 50 mg PO Q6H PRN pain #12 tabs 09/28/23 12/13/23 Rx bvvewcs-llpwyfqziwubb-rafrshay 250 2 tablet PO Q4-6H PRN Pain 12/13/23 12/13/23 History mg-250 mg-65 mg tablet (Excedrin Extra Strength) cetirizine 10 mg tablet (Zyrtec) 10 mg PO DAILY 12/13/23 12/20/23 History folic acid 1 mg tablet 2 mg PO DAILY 12/13/23 12/20/23 History insulin degludec 100 unit/mL (3 30 unit subcut QACDINNER 12/13/23 12/20/23 History mL) subcutaneous pen (Tresiba FlexTouch U-100 insulin) magnesium 250 mg tablet 500 mg PO DAILY 12/13/23 12/20/23 History potassium 99 mg tablet 198 mg PO DAILY 12/13/23 12/20/23 History turmeric root extract 500 mg tablet 500 mg PO DAILY 12/13/23 12/20/23 History Laboratory Tests 12/20/23 12/20/23 06:42 08:18 POC Capillary Glucose 171 H mg/dl 159 H mg/dl (65-105) (65-105) Patient hx anesthesia problems: none Family hx anesthesia problems: none Results Review: All pre-operative results and documents have been reviewed as part of the pre-operative evaluation. [facility] Past Medical History Medical History Ataxia Chronic GERD Depression Diabetes mellitus type 2 Diabetic neuropathy Diabetic polyneuropathy Hyperlipidemia Hypertension Obstructive sleep apnea the patient has lost some weight no longer uses a CPAP machine. Ulnar neuropathy of both upper extremities Surgical History Surgical History H/O elbow surgery H/O foot surgery bilateral feet for possible hammertoe. He had to be admitted to his right 5th toe x2. He had the left 5th toe amputated November of 2019 H/O knee surgery H/O rotator cuff surgery bilaterally H/O umbilical hernia repair History of arthroplasty of right knee History of cholecystectomy S/P foot surgery, right S/P ORIF (open reduction internal fixation) fracture right elbow Family History Family History Father Heart disease Hypertension Mother Heart disease Hypertension Sibling Lung cancer Cerebrovascular accident Hypertension Grandparent Diabetes mellitus Other Family history of alcoholism Family history of arthritis Family history of malignant neoplasm Social History Social History Social History: the patient is to [place]a who is his durable power workers compensation defense attorney for healthcare. The patient is a full code. Patient has 1 biological son and 3 step children. The patient has a job at [email or web address] but has not worked there 2 months due to his foot. The patient continues to smoke a half a pack to a pack a cigarettes a day. Patient uses alcohol socially Na barbra balderas. Smoking packs per day: 1 Smoking cigarettes per day: 20.0 Years smoked: 45 Smoking pack-years: 45.00 Smoking status: Current every day smoker Tobacco type: cigarettes Alcohol intake: current Alcohol use details: 1 per month Substance use: former Substance use type: marijuana Other substance usage details: Gummies occasionally Do You Feel Safe in your Home?: Yes Lack of Transportation: No Lack of Food: Never True Current Housing: I Have Housing Concerned About Future Housing: No Difficulty Paying Gas/Electric Bills: No Difficulty Paying for Meds: No Currently Unemployed: No Education: High School Diploma/GED Difficulty w/ Childcare or Family Care: No Living arrangements: with family Additional living arrangements comments: SON Occupation/Education: occupation Additional occupation/education comments: works at [employer] Gender identity (if verbalized by the patient): Male Sexual Orientation (if Verbalized by the Patient): Straight or Heterosexual Spiritual care concerns: No Anes - Eval Final PreProcedure Day of Procedure 12/20/23 16:58 Patient weight: obese Results Review: All pre-operative results and documents have been reviewed as part of the pre-operative evaluation. Informed Consent: The patient's anesthetic plan and its attendant risks and benefits were discussed with the patient/family/POA. Questions were solicited and answers provided to the satisfaction of the patient/family/POA.
== END 2023-12-20 09:10 | disposition home or self-care (01) ==
PROVIDERS: PCP Internal Medicine; Visit Provider Plastic Surgery
PROC: 01N54ZZ Release Median Nerve, Percutaneous Endoscopic Approach (ICD-10-PCS; CPT 29848; principal; 2023-12-20 07:30)
DX: G56.02 Carpal tunnel syndrome, left upper limb (principal); G56.22 Lesion of ulnar nerve, left upper limb; E11.42 Type 2 diabetes mellitus with diabetic polyneuropathy; I10 Essential (primary) hypertension; E78.5 Hyperlipidemia, unspecified; G47.33 Obstructive sleep apnea (adult) (pediatric); K21.9 Gastro-esophageal reflux disease without esophagitis; F32.A Depression, unspecified; F17.210 Nicotine dependence, cigarettes, uncomplicated; Z79.4 Long term (current) use of insulin; E66.9 Obesity, unspecified; Z68.35 Body mass index [BMI] 35.0-35.9, adult
CPT/HCPCS: 29848; 64718; 82948; J2004; J2405; J2704; J3010; J7120

== ENCOUNTER 2024-11-13 08:39 | Outpatient (CLI) | payer MEDICARE, SELFPAY ==
--- NOTE | ~2024-11-13 | NM_ITS ---
EXAMINATION: NM yoandy stress w perfusion DATE: 11/13/2024 11:13 INDICATION: Chest pain. TECHNIQUE: Rest images were obtained following intravenous administration of 10.0 mCi Tc99m tetrofosmin (Myoview). The patient was infused intravenously with Lexiscan (regadenoson). Then, 33.9 mCi Tc99m tetrofosmin (Myoview) was administered intravenously, and supine and prone stress images were obtained. Data was reconstructed into short axis and horizontal and vertical long axis SPECT images. Gated SPECT images were also obtained. COMPARISON: None. FINDINGS: There is a large, severe, partially reversible perfusion defect involving left ventricular apex, apical to mid inferior segments, apical lateral segment, and mid inferolateral segment, consistent with mixed infarct and ischemia. There is no segmental wall motion abnormality. Left ventricular ejection fraction measures 40%. IMPRESSION: 1. 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 2. Decreased left ventricular ejection fraction measuring 40%. Reviewed, dictated and finalized at location E. IMPRESSION: 1. Large area of severe mixed infarct and ischemia involving left ventricular a pex, apical to mid inferior segments, apical lateral segment, and mid inferolat eral segment. 2. Decreased left ventricular ejection fraction measuring 40%.
--- NOTE | 2024-11-13 09:32 | EST_ITS ---
Patient Info Name: Teodoro Shelton Age: 64 years : 1960 Gender: Male Ht: 74 in Wt: 270 lbs BSA: 2.57 m2 HR: 59 bpm BP: 143 / 71 mmHg Exam Date: 11/13/2024 9:32 AM Patient Status: O Admit Date: 11/13/2024 Exam Type: CA stress yoandy w NM A regadenoson stress test was performed. Staff Referring Physician: Neto Guerrero Attending Provider: Neto Guerrero Exercise Technologist: Kathy Guerrero Exercise Physician: Pernell Adams DO Summary 1. 1. Negative lexiscan stress test for ischemic ST changes by ECG criteria. 2. 2. Baseline hypertension. 3. 3. Nuclear scan to follow and will be reported separately. Please correlate with it. 4. 4. Patient informed of the above results. Protocol: Lexiscan Stress ECG Details Stage: REST Duration (min): 1 min : 1 sec HR (bpm): 59 SBP (mmHg): 143 DBP (mmHg): 71 Stage: REST Duration (min): 7 min : 5 sec HR (bpm): 59 SBP (mmHg): 143 DBP (mmHg): 71 Stage: STAGE 1 Duration (min): 0 min : 59 sec HR (bpm): 69 SBP (mmHg): 144 DBP (mmHg): 72 Stage: RECOVERY Duration (min): 1 min : 0 sec HR (bpm): 89 SBP (mmHg): 144 DBP (mmHg): 72 Stage: RECOVERY Duration (min): 2 min : 0 sec HR (bpm): 84 SBP (mmHg): 144 DBP (mmHg): 72 Stage: RECOVERY Duration (min): 3 min : 0 sec HR (bpm): 83 SBP (mmHg): 166 DBP (mmHg): 77 Stage: RECOVERY Duration (min): 4 min : 0 sec HR (bpm): 85 SBP (mmHg): 166 DBP (mmHg): 77 Stage: RECOVERY Duration (min): 5 min : 0 sec HR (bpm): 76 SBP (mmHg): 163 DBP (mmHg): 86 Stage: RECOVERY Duration (min): 6 min : 0 sec HR (bpm): 84 SBP (mmHg): 163 DBP (mmHg): 86 Stage: RECOVERY Duration (min): 7 min : 0 sec HR (bpm): 83 SBP (mmHg): 166 DBP (mmHg): 88 Stage: RECOVERY Duration (min): 7 min : 5 sec HR (bpm): 83 SBP (mmHg): 166 DBP (mmHg): 88 Rest HR: 59 bpm Peak HR: 90 bpm Rest Sys BP: 143 mmHg Peak Sys BP: 166 mmHg Max Pred HR: 154 bpm % Max Pred HR: 58 % Target HR: 131 bpm Max RPP: 14,940 bpm*mmHg Termination Reason: Completed protocol Cardiac Symptoms: Shortness of breath Total Time: 1 min : 0 sec Rest Dawson BP: 71 mmHg Peak Dawson BP: 88 mmHg Total Dose: 0.4 mg Resting ECG Sinus bradycardia, IVCD, borderline ST-T wave abnormality in anterolat/inf leads. Stress ECG No ST changes. Arrhythmias None. Report Signatures
== END 2024-11-13 08:40 | disposition home or self-care (01) ==
PROVIDERS: PCP Nurse Practitioner; Visit Provider Nurse Practitioner
DX: I21.9 Acute myocardial infarction, unspecified (principal); I50.20 Unspecified systolic (congestive) heart failure; E11.40 Type 2 diabetes mellitus with diabetic neuropathy, unspecified; Z46.1 Encounter for fitting and adjustment of hearing aid; Z82.49 Family history of ischemic heart disease and other diseases of the circulatory system
CPT/HCPCS: 78452; 93017; A9502; J2785

== ENCOUNTER 2024-12-11 12:42 | Outpatient (CLI) | payer MEDICARE, SELFPAY ==
--- NOTE | 2024-12-11 12:49 | ECHO_ITS ---
Patient Info Name: Teodoro Shelton Age: 64 years : 1960 Gender: Male Ht: 73 in Wt: 287 lbs BSA: 2.64 m2 HR: 65 bpm BP: 183 / 104 mmHg Technical Quality: Good Exam Date: 12/11/2024 1:02 PM Patient Status: O Admit Date: 12/11/2024 Exam Type: CA echo doppler color flow Complete two-dimensional, color flow and Doppler transthoracic echocardiogram is performed. Sweat Box Attendant: Jamal Roberts III Attending Provider: Pernell Adams DO Summary 1. Complete two-dimensional, color flow and Doppler transthoracic echocardiogram is performed. 2. Left ventricular chamber dimension is normal. 3. There is mild concentric increased left ventricular wall thickness. 4. Left ventricular systolic function is normal, estimated at 50-55. 5. The left ventricular diastolic function is grade I diastolic dysfunction. 6. E/e' 10 is mildly elevated. 7. Left atrial chamber dimension is moderately enlarged. 8. Right atrial chamber dimension is moderately enlarged. 9. There is mild aortic valve sclerosis. 10. There is mild mitral valve regurgitation. 11. There is mild tricuspid valve regurgitation. 12. No pulmonary hypertension, estimated pulmonary arterial systolic pressure is 31 mmHg. 13. There is trace pulmonic regurgitation. Left Ventricle E/e' 10 is mildly elevated. Left ventricular chamber dimension is normal. Left ventricular systolic function is normal, estimated at 50-55. There is mild concentric increased left ventricular wall thickness. The left ventricular diastolic function is grade I diastolic dysfunction. Right Ventricle Right ventricular chamber dimension is normal. Right ventricular systolic function is normal. Left Atria Left atrial chamber dimension is moderately enlarged. Right Atria Right atrial chamber dimension is moderately enlarged. Aortic Valve The aortic valve is trileaflet. There is mild aortic valve sclerosis. There is no aortic valve stenosis. There is no aortic valve regurgitation. Pulmonic Valve There is trace pulmonic regurgitation. Mitral Valve There is no mitral valve stenosis. There is mild mitral valve regurgitation. Tricuspid Valve There is mild tricuspid valve regurgitation. No pulmonary hypertension, estimated pulmonary arterial systolic pressure is 31 mmHg. Pericardium/Pleural There is no pericardial effusion. Inferior Vena Cava Normal inferior vena cava with >50% collapse upon inspiration consistent with normal right atrial pressure, 5 mmHg. Aorta The aortic root size at the sinus of Valsalva is normal. Left Ventricular Outflow Tract Name Value Normal LVOT 2D LVOT Diameter 2.6 cm LVOT Doppler LVOT Peak Velocity 97 cm/s LVOT Peak Gradient 4 mmHg LVOT Mean Gradient 2 mmHg LVOT VTI 22 cm LVOT VTI/AV VTI Ratio 0.8 LVOT Stroke Volume 114 ml LVOT CO 7.0 l/min LVOT CI 2.6 l/min/m2 Pulmonic Valve Name Value Normal PV Doppler PV Peak Velocity 89 cm/s PV Peak Gradient 3 mmHg PV Mean Gradient 1 mmHg PV Regurgitation Doppler AR Peak End Diastolic Velocity 112 cm/s Mitral Valve Name Value Normal MV Doppler MV Peak Gradient 4 mmHg MV Mean Gradient 1 mmHg MV Area (Cont Eq VTI) 5.0 cm2 MV Regurgitation Doppler MR Peak Gradient 103 mmHg MV Diastolic Function MV E Peak Velocity 64 cm/s MV A Peak Velocity 106 cm/s MV E/A 0.6 MV Decel Time (PW) 266 ms MV Annular TDI MV E/e' (Septal) 17.0 MV E/e' (Lateral) 7.2 MV E/e' (Average) 12.1 Tricuspid Valve Name Value Normal TV Regurgitation Doppler TR Peak Velocity 254 cm/s TR Peak Gradient 26 mmHg Estimated PAP/RSVP RA Pressure 5 mmHg <=5 PA Systolic Pressure 31 mmHg <36 RV Systolic Pressure 31 mmHg <36 TV Annular TDI TV Lateral Lakeisha s' Velocity 14.3 cm/s >=9.5 Aortic Valve Name Value Normal AV Doppler AV Peak Velocity 124 cm/s AV Peak Gradient 6 mmHg AV Mean Gradient 3 mmHg AV VTI 28 cm AV Area (Cont Eq VTI) 4.1 cm2 >=3.0 AV Area (Cont Eq Marlon) 4.1 cm2 AV DI (Marlon) 0.79 AV Regurgitation 2D LVOT Area 5.2 cm2 Ventricles Name Value Normal LV Dimensions 2D/MM IVS Diastolic Thickness (2D) 1.3 cm 0.6-1.0 LVID Diastole (2D) 5.6 cm 4.2-5.8 LVIW Diastolic Thickness (2D) 1.2 cm 0.6-1.0 LVID Systole (2D) 4.5 cm 2.5-4.0 LVOT Diameter 2.6 cm LV Mass (2D Cubed) 300.08 g 88.00-224.00 LV Mass Index (2D Cubed) 114 g/m2 49-115 Relative Wall Thickness (2D) 0.44 <=0.42 LV Fractional Shortening/Ejection Fraction 2D/MM LV Fractional Shortening (2D) 19 % 25-43 LV EF (2D Teichmckayla) 39 % LV Diastolic Volume (4C MOD) 167 ml LV EF (4C MOD) 39 % LV Diastolic Volume (2C MOD) 158 ml LV EF (2C MOD) 53 % LV Diastolic Volume (BP MOD) 166 ml 62-150 LV Diastolic Volume Index (BP MOD) 63 ml/m2 34-74 LV Systolic Volume (BP MOD) 92 ml 21-61 LV Systolic Volume Index (BP MOD) 35 ml/m2 11-31 LV EF (BP MOD) 44 % 52-72 LV Diastolic Length (4C) 8.8 cm LV Systolic Length (4C) 7.9 cm LV Stroke Volume (4C MOD) 66 ml Atria Name Value Normal LA Dimensions LA Volume (4C A-L) 105 ml LA Volume (BP A-L) 104 ml RA Dimensions RA Systolic Major Bliss Length (4C) 5.2 cm 2.1-2.7 RA Area (4C) 22.8 cm2 <=18.0 Report Signatures
== END 2024-12-11 12:43 | disposition home or self-care (01) ==
LOC: ANHCARD 12:44
PROVIDERS: PCP Nurse Practitioner; Visit Provider Internal Medicine Cardiovascular Disease
DX: I34.0 Nonrheumatic mitral (valve) insufficiency (principal); I36.1 Nonrheumatic tricuspid (valve) insufficiency; I35.1 Nonrheumatic aortic (valve) insufficiency
CPT/HCPCS: 93306

== ENCOUNTER 2024-12-23 01:07 | Day surgery (SDC) | payer MEDICARE, SELFPAY ==
[2024-12-20 15:31] VITALS: BMI 36.3
[2024-12-23] VITALS (12 sets, daily range): BP systolic 127–162; BP diastolic 62–97; PULSE 60–87; RESP 12–20; TEMP 36.3; O2SAT 93–99; BMI 35.2
[2024-12-23 09:12] LABS: Hematocrit 43.6 % (42.0-52.0); Hemoglobin 15.0 g/dL (14.0-18.0); Immature Granulocyte Percent A 0.5 % (0-0.5); Lymphocytes Absolute Auto 1.26 K/mm3 (0.9-3.2); Mean Corpuscular HGB Conc 34.4 g/dl (32-36); Mean Corpuscular Hemoglobin 29.7 pg (26-34); Mean Corpuscular Volume 86.3 fl (80-100); Nucleated Red Blood Cells Absolute Auto 0.000 K/mm3 (0.0-0.012); Nucleated Red Blood Cells Perc 0.0 % (0.0-0.2); Platelet Count Result 159 k/mm3 (150-375); Red Blood Count 5.05 M/mm3 (4.6-6.20); White Blood Count 8.4 K/mm3 (4.5-10.0)
--- NOTE | 2024-12-23 09:14 | WPDHPUPDATE1 ---
History and Physical Update Update Date/Time: 12/23/24 09:14 History and Physical has been reviewed, including an updated exam of the patient. There are NO changes in the patient's condition. Risks, benefits, and alternatives have been discussed and questions answered. Patient agrees to proceed with procedure.
--- NOTE | 2024-12-23 09:14 | WPDMODSED ---
Moderate Sedation Note-Pt Data Patient Data Allergies Allergy/AdvReac Type Severity Reaction Status Date / Time No Known Allergies Allergy Verified 12/23/24 08:55 Home Medications ?Medication ?Instructions ?Recorded ?Confirmed ?Type cetirizine 10 mg tablet (Zyrtec) 10 mg PO DAILY 12/13/23 12/23/24 History folic acid 1 mg tablet 2 mg PO DAILY 12/13/23 12/20/24 History magnesium 250 mg tablet 500 mg PO DAILY 12/13/23 12/23/24 History potassium 99 mg tablet 198 mg PO DAILY 12/13/23 12/23/24 History cholecalciferol (vitamin D3) 125 125 mcg PO DAILY 06/17/24 12/23/24 History mcg (5,000 unit) capsule cinnamon bark 500 mg capsule 500 mg PO DAILY 06/17/24 12/23/24 History (Cinnamon) buspirone 10 mg tablet 10 mg PO .daily in the evening #30 10/11/24 12/23/24 Rx tabs lisinopril 10 mg tablet 10 mg PO DAILY #90 tabs 10/11/24 12/23/24 Rx zinc acetate 25 mg (zinc) capsule 25 mg PO DAILY 10/11/24 12/23/24 History rosuvastatin 20 mg tablet 20 mg PO DAILY #90 tabs 11/13/24 12/23/24 Rx aspirin 81 mg tablet 81 mg PO DAILY 12/04/24 12/23/24 History furosemide 20 mg tablet (Lasix) 20 mg PO QAM #30 tabs 12/04/24 12/23/24 Rx insulin degludec 100 unit/mL (3 30 unit (0.3 mL) subcut QACDINNER 12/05/24 12/23/24 Rx mL) subcutaneous pen (Tresiba #15 mL FlexTouch U-100 insulin) Current Medications: Active Medications Sodium Chloride (Normal Saline Iv) 500 mls @ 100 mls/hr IV CONT .Q5H ENEDELIA Sedation/Anesthesia: No previous sedation/anesthesia problems (including family history). [facility] Past Medical History Medical History Ulnar neuropathy of both upper extremities Degenerative cervical spinal stenosis Type 2 diabetes mellitus with foot ulcer (01/18/17) Aftercare following surgery of the musculoskeletal system Acute osteomyelitis of metatarsal bone of right foot Ataxia Diabetic polyneuropathy Ulnar neuropathy of both upper extremities Diabetic neuropathy Chronic GERD Hyperlipidemia Obstructive sleep apnea the patient has lost some weight no longer uses a CPAP machine. Depression Hypertension Diabetes mellitus type 2 Surgical History Surgical History History of surgery on wrist History of arthroplasty of right knee H/O foot surgery bilateral feet for possible hammertoe. He had to be admitted to his right 5th toe x2. He had the left 5th toe amputated November of 2019 S/P ORIF (open reduction internal fixation) fracture right elbow S/P foot surgery, right H/O knee surgery H/O umbilical hernia repair H/O elbow surgery H/O rotator cuff surgery bilaterally History of cholecystectomy Family History Family History Father Heart disease Hypertension Aortic aneurysm Mother Heart disease Hypertension Sibling Lung cancer Cerebrovascular accident Hypertension Grandparent Diabetes mellitus Other Family history of alcoholism Family history of arthritis Family history of malignant neoplasm Social History Social History Smoking packs per day: 1 Smoking cigarettes per day: 20.0 Years smoked: 45 Smoking pack-years: 45.00 Smoking status: Current every day smoker Tobacco type: cigarettes Second hand tobacco smoke exposure: Yes Alcohol intake: current Alcohol use details: 1 per month Substance use: current Substance use type: marijuana Other substance usage details: Gummies occasionally Do You Feel Safe in your Home?: Yes Lack of Transportation: No Lack of Food: Never True Current Housing: I Have Housing Concerned About Future Housing: No Difficulty Paying Gas/Electric Bills: No Difficulty Paying for Meds: No Currently Unemployed: No Education: High School Diploma/GED Difficulty w/ Childcare or Family Care: No Living arrangements: with family Additional living arrangements comments: SON Occupation/Education: occupation Additional occupation/education comments: works at [employer] Gender identity (if verbalized by the patient): Male Sexual Orientation (if Verbalized by the Patient): Straight or Heterosexual Spiritual care concerns: No Mod Sed Physical Exam Physical Exam Pre Procedural Exam: Normal: Lungs, Heart Size, Heart Rate and Heart Rhythm Hours since solid foods: 12 Hours since liquid intake: 12 Mallampati Classification: class III Internal Medicine - PN: Obj Da Vital Signs Vital Signs: Vital Signs - 24 hr 12/23/24 08:58 Temperature 36.3 C L Pulse Rate 76 Respiratory Rate 12 Blood Pressure 147/78 H Pulse Oximetry 98 Oxygen Delivery Room Air Meds/Results Medications: Active Medications Generic Name Dose Route Start Last Admin Trade Name Freq PRN Reason Stop Dose Admin Sodium Chloride 500 mls @ 100 mls/hr 12/23/24 08:30 Normal Saline Iv IV CONT .Q5H ENEDELIA Labs 12/23/24 09:06 12/23/24 09:06 ASA Classification/Sedation ASA Classification/Sedation ASA Class: III Emergent: No Risks: Risks, benefits and alternatives explained and patient/family accepted plan for sedation. Patient re-evaluated immediately prior to sedation.
[2024-12-23 09:23] LABS: Anion Gap 7 mmol/L (4-12); Blood Urea Nitrogen 14 mg/dL (9-20); Calcium 8.5 mg/dL (8.4-10.2); Carbon Dioxide 28 mmol/L (22-30); Chloride 95 mmol/L (98-107); Estimated CRCL calculation 105 ml/min; Estimated Glomerular Filt Rate > 60; Glucose 130 mg/dL (65-110); Potassium 4.2 mmol/L (3.4-5.0); Sodium 130 mmol/L (137-145)
--- NOTE | 2024-12-23 10:29 | P.PCNCC_ITS ---
Cardiac Cath Procedure Note Date of procedure:: 12/23/24 Performing physician:: CATHETERIZATION LABORATORY REPORT Procedure Date: 12/23/2024 Referring Physician: Dr. Adams Anesthesia: Versed and Fentanyl were ordered and given in my presence at 1008, procedure ended at 1024. Supervision of nurse, Anna Vargas monitored moderate sedation with 2mg Versed and 100mcg Fentanyl was provided for 16 minutes. Pre-op Diagnosis: Abnormal stress test Post-op Diagnosis: Abnormal stress test Procedure(s): Left heart catheterization with coronary angiography Access Site: Right radial artery Brief History and Clinical Indications: 64-year-old man who is an active tobacco abuser with diabetes, hypertension, and hyperlipidemia who is experiencing chest discomfort found to have abnormal nuclear stress test for which a left heart catheterization with possible PCI have been recommended. All risks, benefits and alternatives to left heart catheterization with or without percutaneous coronary intervention was discussed at length with the ludy ent. Risk of complications including but not limited to bleeding, infection, arrhythmia, stroke, worsening kidney function, blood loss, groin hematoma, limb loss, emergency coronary artery bypass grafting, and even were discussed with the patient and all questions were answered. The patient understood and wished to proceed. Time out called, patient name, date of , medical record number, allergies, procedure performed, identify Costumer Assistant, patient and staff member concurred with accurate data, procedure carried on. Findings: LEFT HEART CATHETERIZATION FINDINGS: 1. Left main: The left main coronary artery is widely patent without any significant obstructive disease. 2. Left anterior descending: The proximal LAD has 70% stenosis. The mid LAD is diffusely disease and has a long segment of 80% stenosis before becoming a small distal LAD with mild diffuse disease. First diagonal branch is small caliber vessel that has diffuse 10% stenosis. 2nd diagonal branch is a moderate caliber vessel with 99% stenosis in its midbody and the distal vessel are small and di ffusely diseased. 3. Left circumflex: The left circumflex artery provides 2 OM branches. The ostial circumflex has 60-70% stenosis. OM1 has distal 80% stenosis and tapers off into small vessel subtotal CTOs. OM2 has diffuse 20-40% stenosis and in its distal body has 70% stenosis. 4. Right coronary artery: The RCA is a large dominant vessel with diffuse 20-40% stenosis. The rPDA has 50-60% proximal stenosis and the remainder of the RPDA provides a suitable surgical target. The right PL branch has several areas of 90-99% stenosis and is not amenable to revascularization. 5. Left ventricle: A. End-diastolic pressure 19 mmHg. B. LV gram deferred. C. No significant gradient across aortic valve on catheter pullback. 6. Opening AO pressure 101/77 and closing AO pressure 105/57 Description of Procedure: Informed consent signed and placed in the chart. Patient transferred to physical laboratory assistant room. Prepped and draped in usual sterile fashion. 2% lidocaine injected subcutaneously in right wrist area. 22-gauge venipuncture catheter used to access the right radial artery with the Seldinger technique. 6-FR slender sheath placed in right radial artery. Nitroglycerin 200mcg, Verapamil 2.5mg, and Heparin 5000U was given intraarterial through the sheath. J wire advanced under fluoroscopy and given tortuosity in the chest vessels, was switched out for a Wholey wire which allowed access to the aortic root. A 5F Ultra diagnostic catheter engaged Left Main Coronary Artery and Right Coron flaco Artery. Multiple orthogonal angiogram obtained and reviewed. The 5F Ultra diagnostic catheter crossed aortic valve to obtain LVEDP, LV angiogram deferred. Hemostasis was achieved by application of TR band. Assessment: Severe Multivessel CAD Post Operative Condition: Stable No significant blood loss Disposition: Home Plan: The above findings were discussed with the referring physician. Continue aggressive medical therapy and risk factor modification. Recommend surgical revascularization. Complete revascularization will not be possible endovascularly. Bayron Chen Interventional Cardiology
[2024-12-23] MEDS: SODIUM CHLORIDE 0.9% IV 1,000 ML 125 ML IV CONT (10:45)
--- NOTE | 2024-12-23 12:00 | SUR.PHASEII ---
Pt received lunch tray and ambulated to the bathroom w/o difficulty at this time.
--- NOTE | 2024-12-23 13:17 | SUR.PHASEII ---
Phase II documentation completed at this time. Pt waiting for ride before discharge.
== END 2024-12-23 14:00 | disposition home or self-care (01) ==
PROVIDERS: PCP Nurse Practitioner; Visit Provider Internal Medicine
PROC: 4A023N7 Measurement of Cardiac Sampling and Pressure, Left Heart, Percutaneous Approach (ICD-10-PCS; CPT 93452; principal; 2024-12-23 10:00)
DX: I25.10 Atherosclerotic heart disease of native coronary artery without angina pectoris (principal); E78.5 Hyperlipidemia, unspecified; I10 Essential (primary) hypertension; E11.42 Type 2 diabetes mellitus with diabetic polyneuropathy; E11.621 Type 2 diabetes mellitus with foot ulcer; K21.9 Gastro-esophageal reflux disease without esophagitis; G47.33 Obstructive sleep apnea (adult) (pediatric); F32.A Depression, unspecified; M48.02 Spinal stenosis, cervical region; F17.210 Nicotine dependence, cigarettes, uncomplicated; F12.90 Cannabis use, unspecified, uncomplicated; Z79.82 Long term (current) use of aspirin; Z79.4 Long term (current) use of insulin; Z98.890 Other specified postprocedural states; Z90.49 Acquired absence of other specified parts of digestive tract; Z80.1 Family history of malignant neoplasm of trachea, bronchus and lung; Z82.49 Family history of ischemic heart disease and other diseases of the circulatory system
CPT/HCPCS: 36415; 80048; 85025; 93458; C1769; C1887; C1894; J1644; J2003; J2250; J2305; J3010; J7040